=== PATIENT | male | born 1950 | race Caucasian/White ===

== ENCOUNTER → 2016-08-29 | Outpatient (CLI) | payer BC ==
[~2016-08-29] MED LIST: ACCL20 PO; ASCO500T3 PO; ASPI81TA28 PO; CHOL1TAB46 PO; CLB/200 PO; DILT120C43 PO; FLNIN NAE; GLC/500 PO; GLIM2TAB2 PO; LEVAAER2 INH; MAGN500T4 PO; NIAC500T7 PO; SYMIN160 INH; VITA400C3 PO
[2016-08-29 12:33] LABS: ESTIMATED AVERAGE GLUCOSE 174 mg/dl; HA1C FLAG Normal (Normal)
== END | disposition home or self-care (01) ==
LOC: C.LABBC 07:48
PROVIDERS: ATTEND Internal Medicine Endocrinology, Diabetes & Metabolism
DX: I25.10 Atherosclerotic heart disease of native coronary artery without angina pectoris (principal); E78.5 Hyperlipidemia, unspecified; I10 Essential (primary) hypertension; E55.9 Vitamin D deficiency, unspecified; E10.42 Type 1 diabetes mellitus with diabetic polyneuropathy; R20.8 Other disturbances of skin sensation

== ENCOUNTER → 2016-12-21 | Outpatient (CLI) | payer BC ==
[2016-12-21 10:40] LABS: ALT/SGPT 60 U/L (12-78); AST/SGOT 58 U/L (15-37); BLOOD UREA NITROGEN 23 mg/dl (7-18); BUN/CREATININE RATIO 23.7 (10-20); CALCIUM 8.5 mg/dl (8.5-10.1); CARBON DIOXIDE 32 mmol/L (21-32); CHLORIDE 108 mmol/L (98-107); CREATININE 0.95 mg/dl (0.60-1.40); GLUCOSE 158 mg/dl (70-99); POTASSIUM 4.4 mmol/L (3.5-5.1); SODIUM 144 mmol/L (136-145)
[2016-12-21 10:42] LABS: CHOLESTEROL 136 mg/dl (0-200); CHOLESTEROL/HDL RATIO 1.9; HDL CHOLESTEROL 70 mg/dl; LDL CHOLESTEROL CALCULATED 54 mg/dl; TRIGLYCERIDES 58 mg/dl (0-150); VERY LOW DENSITY LIPOPROT CALC 12 mg/dl
== END | disposition home or self-care (01) ==
LOC: C.LABBC 08:22
PROVIDERS: ATTEND Internal Medicine Cardiovascular Disease
DX: I25.10 Atherosclerotic heart disease of native coronary artery without angina pectoris (principal); I10 Essential (primary) hypertension; Z11.59 Encounter for screening for other viral diseases

== ENCOUNTER → 2016-12-29 | Outpatient (CLI) | payer BC | END | disposition home or self-care (01) | LOC: C.RDSM 09:35 | PROVIDERS: ATTEND Orthopaedic Surgery Sports Medicine | DX: M25.562 Pain in left knee (principal) ==

== ENCOUNTER → 2017-03-14 | Outpatient (CLI) | payer BC ==
--- NOTE | 2017-03-15 05:37 | PAP/PSG TECHNICIAN REPORT ---
[facility] Cheese [facility] Polysomnogram Report Study name: None Report date: 03/15/2017 Study date: 03/14/2017 Referring Physician: BRANDON HEALY DO, DO Name: BROAmeyaANJEL Interpreting Physician: Brandon Healy D.O. Date of : 1950 Cheese Cook: Dora Magana [facility]. Sex: Male Age: 66 Study Type: PSG Weight: 160 lbs Height: 66 years, Height 5' 7" BMI: 25.06 Medications: ADVIL 200 MG, ASPIRIN 81 MG, CARTIA 120 MG, CELECOXIB 200 MG, CIALIS 5 MG, FLUTICASONE PROPIONATE 50 MCG/ACT, HUMALOG 100 UNIT/ML, MAGNESIUM 500 MG, METFORMIN 500 MG, MONTELUKAST 10 MG, NIACIN 1000 MG, PANTOPRAZOLE 40 MG, PROAIR HFA, SYMBICORT 160-4.5 MCG/ACT, VIT C 500 MG Patient History 66 yr-old male here for a baseline/split study. He has a history of atrial fibrillation, witnessed apneas, and snoring. His [place] scale is 5. The test was started on room air. The TV was turned off. ETCO2 testing was not utilized during this study. Room 3 Parameters Monitored NPSG: E1-M2, E2-M1, Fp1-M2, Fp2-M1, F3-M2, F4-M2, F4-M1, C3-M2, C4-M2, C4-M1, O1-M2, O2-M2, O2-M1, T3-M2, T4-M1, P3-M2, P4-M1, CHIN1, CHIN2, HR, EKG, Legs, PFLOW, SNOR, FLOW, CFLOW, Tidal Volume, THOR, ABDO, SpO2, PLTH, CPRESS, ETCO2 Wave, ETCO2, pH Sleep Architecture Sleep Stages Time at Lights Off 10:24:54 PM STAGES Time (min.) TST (%) Time at Lights On 1:47:54 AM Wake 152.0 -- Total Recording Time (TRT) 203.00 min. N1 44.0 86 Total Sleep Period (TSP) 177.0 min. N2 7.0 14 Total Sleep Time (TST) 51.0min. N3 0.0 0 Awake Time 152.0 min. REM 0.0 0 Wake after Sleep Onset 143.5 min. Sleep Efficiency (SE) 25 % Sleep Onset Latency (JYOTI) 8.5 min. Number of Stage 1 Shifts None Awakenings 14 Stage Changes 46 Number of REM periods N/A REM 0.0 0 REM Latency NONE min. NREM 51.0 100 Body Position Analysis Supine Right Left Side Prone Vertical Total Sleep Time (min.) 0.0 8.3 42.7 51.00 0.0 0.0 Total Sleep Time (%) 0% 16% 84% 100 0% N/A% Total Sleep Time REM (min.) 0.0 0.0 0.0 None 0.0 0.0 Total Sleep Time NREM (min.) 0.0 8.3 42.7 None 0.0 0.0 Intermittent Wake (min.) 0.0 70.7 81.3 None 0.0 0.0 Total Sleep Period (%) 0% None None None None None Arousals Myoclonus (PLM) * Events Count Index Events Count Index Spontaneous 19 22 Events Awake (PLMW) 174 68.7 Respiratory 2 2.4 Events Asleep w/ Arousal (PLMA) 45 52.9 PLM 44 53 Events Asleep w/o Arousal (PLMS) 33 38.8 Snoring 0 0 Total Asleep 78 91.8 Total 65 76 Total 252 74 Respiratory Analysis * CA OA MA CH H RERA Total Count 0 1 0 0 0 1 1 Index 0.0 1.2 0.0 0 0.0 1 2.4 Mean Duration 0.0 15.9 0.0 0.00 0.0 17.6 16.8 Longest Duration 0.0 15.9 0.0 0.00 0.0 17.6 17.6 Respiratory Event Summary Total Supine ~Supine Right Left Prone REM NREM Apneas Count 1 N/A 1 1 0 N/A N/A 1 Index 1.2 N/A 1 7.2 0.0 N/A N/A 1 Hypopneas (4% Desat) Count 0 N/A 0 0 0 N/A N/A 0 Index 0.0 N/A 0 0.0 0.0 N/A N/A 0.0 Apneas & All Hypopneas Count 1 N/A 1 1 0 N/A N/A 1 Index 1.2 N/A 1 7 0 N/A N/A 1.2 Respiratory Events (Car Checker+All Hyp+RERA) Count 1 N/A 2 1 1 N/A N/A 1 Index 2.4 N/A 2 7.2 1.4 N/A N/A 2.4 Respiratory Related Arousal Count 2 N/A 2 1 1 N/A N/A 2 Index 2.4 N/A 2 7 1 N/A N/A 2 Snoring Analysis Supine Right Left Prone REM NREM Total Snore duration 0.6 min Snores count N/A 3 13 N/A N/A 16 16 Snore mean duration 2.2 Sec Snores index N/A 22 18 N/A N/A 18.8 18.8 TST with snoring (%) 1.2% Desaturation Event Summary: Minimum %SpO2 Event Count Mean/Min/Max Duration(sec.) Desaturation Index % Time In Bed > 90 5 30.4 / 5.8 / 53.5 2.0 97.2 86 - 90 0 N/A 0.0 2.6 81 - 85 1 17.0 / 17.0 / 17.0 194.6 0.2 76 - 80 0 N/A 0.0 0.0 71 - 75 0 N/A 0.0 0.0 66 - 70 0 N/A 0.0 0.0 61 - 65 0 N/A 0.0 0.0 56 - 60 0 N/A 0.0 0.0 51 - 55 0 N/A 0.0 0.0 < 50 0 N/A 0.0 0.0 Total REM NREM Awake <50% 0.0 min. 0.0 min. 0.0 min. 0.0 min. 51 - 60% 0.0 min. 0.0 min. 0.0 min. 0.0 min. 61 - 70% 0.0 min. 0.0 min. 0.0 min. 0.0 min. 71 - 80% 0.0 min. 0.0 min. 0.0 min. 0.0 min. 81 - 90% 4.2 min. 0.0 min. 1.4 min. 2.8 min. 91 - 100% 147.3 min. 0.0 min. 48.5 min. 98.8 min. Average 93 0 93 93 Minimum SpO2 82 N/A 90 82 Desaturation Event Index 1.8 0.0 1.2 2.0 # Desat. Events below 89% 1 N/A N/A 1 Time(%) with Saturation below 89% 0.2 0.0 0.0 0.2 Time(min.) with Saturation below 89% 0.3 0.0 0.0 0.3 Time (mins) REM (mins) NREM (mins) % of TST SpO2 Below 90% N/A N/A NN/A 0.0 SpO2 Below 88% 0 0 0 0 Heart Rate Analysis Min (bpm) Max (bpm) Average (bpm) Awake 48 265 58 NREM 46 60 50 REM N/A N/A N/A Overall 46 60 50 Supplemental O2 Values Minimum O2 level: None Value Start Time End Time Cheese Cook Comments Mr. Gamboa slept in the right and left positions. No cardiac arrhythmias were noted. Although sleep time was short, he did have many leg movements that caused arousals. No bruxism noted. Snoring was noted and scored as a 2 on a scale of 1 through 5. (0=no snoring, 5=snoring loud enough to be heard through a closed door or down the [address] way). He did not meet specific Split-Night criteria during the diagnostic portion of this study. He started to express a feeling of anxiety with all of the wires. He stated that feeling that way was making it hard to relax and get to sleep. Around 2 am, he requested to go home. He awoke to use the restroom four times during the night. Mr. Gamboa stated that he felt anxious and could not sleep. The final report will be interpreted and signed by a sleep physician. The completed physician report will then be placed in the patient medical record. Therapy (cm H2O) 0 TIB (min.) 203.0 TST (min.) 51.0 Sleep Onset (min.) 8.5 REM Onset From Sleep (min.) NONE Sleep Efficiency % 25 Wakefulness (%) 75 Wakefulness (min.) 152.0 NREM 1 (%) 86 NREM 1 (min.) 44.0 NREM 2 (%) 14 NREM 2 (min.) 7.0 NREM 3 (%) 0 NREM 3 (min.) 0.0 REM (%) 0 REM (min.) 0.0 # Arousals 65 Arousal Index 76 # Snore 16 Snore Index 18.8 AHI 1.2 AHI Supine N/A AHI Non-Supine 1 NREM AHI 1.2 REM AHI N/A RDI 2.4 # Obstructive Apnea 1 # Central Apnea 0 # Mixed Apnea 0 # Hypopneas 0 RERAs 1 Total Respiratory Events 2 Time Below SpO2 89% (min.) 0.0 Mean NREM SpO2 (%) 93 Mean REM SpO2 (%) N/A Mean Sleep SpO2 (%) 93 Min NREM SpO2 (%) 90 Min REM SpO2 (%) N/A Position Supine (min.) 0.0 Position Non-supine (min.) 51.0 LM Index Sleep 91.8 LM Index NREM 91.8 LM Index REM N/A Mean Heart Rate (bpm) 50 Min Heart Rate (bpm) 46 Cheese Cook Comments and User Events: Comment/Event Page Number Time of Day PT CALS 237 10:21:25 PM Look Right 237 10:21:41 PM Look Left 237 10:21:44 PM Look Up 238 10:21:55 PM Look Down 238 10:21:57 PM Eyes Closed 238 10:22:08 PM Bite down on Jaw 239 10:22:28 PM Flex foot 239 10:22:33 PM Hold Breath 239 10:22:42 PM Snore sound 240 10:23:00 PM HE STATED THAT HE IS GETTING CLAUSTROPHOBIC ROLLING IN ALL OF THE WIRES. HE REQUESTED TO SIT UP IN A CHAIR FOR AWHILE AFTER USING THE RESTROOM. HE MAY TRY TO GET BACK IN BED FOR ANOTHER TRY 493 12:29:24 AM HE IS NOW TRYING TO RELAX ONCE MORE. HE STATED THAT HE WILL TRY TO GET BACK TO BED ONE MORE TIME 534 12:49:58 AM HE STATED THAT HE WAS NOT SLEEPING ENOUGH AND WANTED TO END THE STUDY TO GO HOME AND GET SLEEP 648 1:47:23 AM
--- NOTE | 2017-03-18 15:13 | POLYSOMNOGRAPH REPORT ---
CLINICAL DATA: The patient is a 66-year-old male who has a BMI of 25.06. He has a history of snoring, observed apnea, and disturbed nocturnal sleep. He has had sleepiness driving. His [place] score, however, is only 5 out of a possible 24. The patient has a history of atrial fibrillation and asthma. SLEEP ARCHITECTURE: The total sleep period was 177.0 minutes. The total sleep time was 51.0 minutes. The sleep efficiency is severely reduced to 25%. The sleep latency was 8.5 minutes. Wake after sleep onset was elevated at 143.5 minutes. Sleep consisted of stage N1 at 86%, stage N2 at 14%, stage N3 at 0%, and stage REM 0%. AROUSAL DATA: The patient had a total of 65 arousals including 19 spontaneous arousals, 2 respiratory arousals, 44 PLM arousals, and 0 snoring arousals. The arousal index is 76. PLM DATA: The patient had a total of 78 periodic limb movements of sleep for an index of 91.8. There were 45 arousals, associated with limb movements for a PLM arousal index of 52.9. EKG: The cardiac rates ranged from 46-60 beats per minute. The average heart rate was 50 beats per minute. The rhythm was normal sinus. There were rare extrasystoles. RESPIRATORY DATA: The patient had a total of only 1 respiratory event and obstructive apnea. The apnea was 15.9 seconds in length. There was 1 RERA. The apnea-hypopnea index was normal at 1.2 events per hour. OXIMETRY DATA: The average saturation for the night was 93%. The minimum saturation was 82%. This appears to be technical in nature. He had only 0.3 minutes with saturations less than 89%. WING COMMANDER COMMENTS: The patient slept in the right and left positions. No cardiac arrhythmias were noted. Although sleep time was short, he had many leg movements that caused arousals. No bruxism noted. Snoring was noted and scored as a 2 on a scale of 1 through 5. The patient expressed a feeling of anxiety. He indicated he could not relax and get to sleep and stay asleep. He ultimately requested to go home around 02:00 a.m. IMPRESSIONS: 1. Periodic limb movement disorder. 2. Insomnia. COMMENTS: The patient had a poor night sleep. His total sleep time was less than 1 hour. Thus, it is difficult to make a judgment. In the less than 1 hour of sleep time, he had very little sleep apnea. He did have poorly consolidated sleep with mainly stage N1 sleep and no stage N3 or REM. The patient did have frequent periodic limb movements. It is unclear if these may be contributing to his insomnia or not. The patient has a history of atrial fibrillation, but his cardiac rhythm was sinus throughout. As noted, it is difficult to make definitive opinions with a total of only 51 minutes of sleep time. RECOMMENDATIONS: 1. The patient does have a marked elevation of periodic limb movements. Clinical correlation is required to determine if indeed the patient may have true restless leg syndrome and may benefit from pharmacologic therapy. 2. Consideration could be given to doing a repeat study, perhaps even as a home sleep study where the patient might sleep better. 3. The patient should be advised of the appropriate principles of sleep hygiene with particular attention to having a regular sleep-wake schedule and to allow approximately 7-1/2 hours of sleep time per night. MTDD
== END | disposition home or self-care (01) ==
LOC: C.NEUR 20:00
PROVIDERS: ATTEND Internal Medicine Pulmonary Disease
DX: G47.33 Obstructive sleep apnea (adult) (pediatric) (principal)

== ENCOUNTER → 2017-04-10 | Outpatient (CLI) | payer BC ==
--- NOTE | 2017-04-12 17:44 | Sleep Study ---
Sleep Study Report Date of Service: 04/10/2017 Sleep Study Report Clinical data: The patient is a 66-year-old male with a history of snoring, observed apneas, and disturbed nocturnal sleep. He has a history of sleepiness while driving. He completed the [place] Sleepiness Scale and had a score of only 5/24. Comorbidities include atrial fibrillation and asthma. His BMI is 25.21. The patient had an in-lab overnight polysomnography on 03/14/2017. For the entire night he had a total of only 51 minutes of sleep. Thus no determination regarding the presence or absence of sleep apnea could be made. In light of this a home sleep study is being done. On the evening of April 10 a home sleep apnea test was performed using a [employer] type 3 monitor. Recording results: Total recording time was 10 hours. Patient estimated sleep time was 7.9 hours. Respiratory data: Moderate sleep apnea was noted. He had a total of 136 respiratory events including 72 obstructive apneas, 8 mixed apneas, 41 central apneas, and 15 hypopneas. The BETSY was 17.2 events per hour. The maximum respiratory event was 40 seconds. This reflects moderate sleep apnea. Oximetry data: The mean saturation for the night was 93 percent. The minimum saturation was 88 percent. Heart rate data: The lowest heart rate was 49 beats per minute. The mean heart rate was 61 beats per minute. Snoring data snoring was present throughout the night. Impressions: 1. Moderate obstructive sleep apnea Recommendations: 1. It is advised that the patient be treated with nasal CPAP. He previously had an in-lab sleep study and did not sleep hardly at all. Thus it would be suggested that he be started on auto CPAP. 2. It is suggested that the patient avoid sleeping in the supine position. During this study it was noted that the apnea-hypopnea index in the supine position was 38. 3. The patient should be advised the appropriate principles of sleep hygiene including having a regular sleep-wake schedule and allowing 7.5-8 hours of sleep per night. Copies To 1: Brandon Rowe DO; Mat Anne D.O.
== END | disposition home or self-care (01) ==
LOC: C.NEUR 09:15
PROVIDERS: ATTEND Internal Medicine Pulmonary Disease
DX: G47.33 Obstructive sleep apnea (adult) (pediatric) (principal)

== ENCOUNTER → 2017-06-06 | Outpatient (CLI) | payer BC ==
[~2017-06-06] MED LIST changes: +OPTIRAY 320 IV PRN
--- NOTE | 2017-06-06 15:01 | DIAGNOSTIC IMAGING REPORT ---
CT SCAN OF THE CHEST WITH IV CONTRAST CLINICAL HISTORY: Hemoptysis. COMPARISON STUDY: Chest CT scans dated 12/20/2014 and 03/09/2012. TECHNIQUE: Following the IV administration of 94 cc of Optiray 320, CT scan of the thorax was performed from the thoracic inlet to the upper abdomen. Images are reviewed in the axial, sagittal, and coronal planes. IV contrast was administered without complication. A dose lowering technique was utilized adhering to the principles of ALARA. CT DOSE: 318.25 mGycm FINDINGS: Thyroid: Imaged portions of the thyroid gland are normal in size and attenuation. Thoracic aorta: There is mild atherosclerotic calcification of the thoracic aorta, which is normal in caliber and demonstrates standard 3-vessel arch anatomy. No dissection is seen. Pulmonary vasculature: The pulmonary trunk is dilated, measuring 3.6 cm in diameter. This suggests pulmonary artery hypertension. There are no filling defects identified in the central pulmonary vessels to indicate pulmonary embolus. Note that this examination was not protocoled for evaluation of the pulmonary arteries. Heart: The patient is status post midline sternotomy. The heart is enlarged and without pericardial effusion. The coronary arteries are densely calcified. Lungs and pleural spaces: Linear atelectasis versus scarring is present at the lung bases. No airspace consolidation is seen typical for pneumonia and there is no pleural effusion. Minimal secretions are present within the trachea and right mainstem bronchus. Mediastinum: There is no mediastinal lymphadenopathy. Carmen: Clear. Axillae: There is no axillary lymphadenopathy. Upper abdomen: Nonobstructing calculi are seen in the upper poles of both kidneys. There is a small hiatal hernia fatty infiltration is noted adjacent to falciform ligament. Skeletal structures: The skeletal structures are osteopenic. No lytic or blastic bony lesions are seen. There are healed right-sided rib fractures. Postoperative change is noted in the left proximal humerus. IMPRESSION: 1. No acute cardiopulmonary abnormality is identified. 2. Cardiomegaly. 3. Scarring versus atelectasis is present at both lung bases. There is no airspace consolidation typical for pneumonia or pleural effusion. 4. Bilateral nephrolithiasis. 5. Additional findings as above. Electronically signed by: Octavio Mcghee M.D. 06/06/2017 3:00 PM Dictated Date/Time: 06/06/2017 2:55 PM
== END | disposition home or self-care (01) ==
LOC: C.CTS 14:13
PROVIDERS: ATTEND Internal Medicine Pulmonary Disease
DX: R04.2 Hemoptysis (principal); I51.7 Cardiomegaly; N20.0 Calculus of kidney

== ENCOUNTER → 2017-09-20 | Outpatient (CLI) | payer BC ==
[~2017-09-20] MED LIST changes: -OPTIRAY 320 IV PRN
== END | disposition home or self-care (01) ==
LOC: C.RDSM 12:55
PROVIDERS: ATTEND Orthopaedic Surgery Sports Medicine
DX: M17.12 Unilateral primary osteoarthritis, left knee (principal)

== ENCOUNTER 2019-02-11 05:19 | Inpatient (IN) ==
--- NOTE | 2019-01-27 16:37 | PAT Medication Instructions ---
Medication Instructions Date of Service January 28, 2019 Home Medications Medication Instructions Recorded metformin 500 mg tablet 1,000 mg PO BID #360 tab 12/25/18 metformin 500 mg tablet 1,000 mg PO BID ascorbic acid (vitamin C) 500 mg PO QAM aspirin [Aspirin Low Dose] 81 mg PO QAM budesonide-formoterol 2 puff INHALATION BID celecoxib 200 mg PO QAM cholecalciferol (vitamin D3) [Vitamin D3] 5,000 unit PO QAM diltiazem HCl 120 mg PO QAM fluticasone propionate 2 spray INTRANASAL DAILY NEEDED insulin lispro [Humalog U-100 Insulin] 1 sliding scale dose SUBCUT USEASDIRECTD levalbuterol HCl 0.63 mg INHALATION HS levalbuterol tartrate 2 inh INHALATION Q6H NEEDED magnesium oxide 500 mg PO QAM niacinamide [Niacin (niacinamide)] 3,000 mg PO QAM pantoprazole 40 mg PO QAM vitamin E 400 unit PO QAM ASK your surgeon for instructions aspirin [Aspirin Low Dose] 81 mg PO QAM celecoxib 200 mg PO QAM STOP taking 2 weeks before surgery vitamin E 400 unit PO QAM STOP taking 24 hours before surgery niacinamide [Niacin (niacinamide)] 3,000 mg PO QAM DO NOT take the morning of surgery insulin lispro [Humalog U-100 Insulin] 1 sliding scale dose SUBCUT USEASDIRECTD metformin 500 mg tablet 1,000 mg PO BID ascorbic acid (vitamin C) 500 mg PO QAM fluticasone propionate 2 spray INTRANASAL DAILY NEEDED cholecalciferol (vitamin D3) [Vitamin D3] 5,000 unit PO QAM magnesium oxide 500 mg PO QAM niacinamide [Niacin (niacinamide)] 3,000 mg PO QAM Take morning of surgery With a small sip of water, OTHERWISE NOTHING TO EAT OR DRINK AFTER MIDNIGHT: budesonide-formoterol 2 puff INHALATION BID diltiazem HCl 120 mg PO QAM levalbuterol tartrate 2 inh INHALATION Q6H NEEDED (if needed) pantoprazole 40 mg PO QAM Take evening before surgery insulin lispro [Humalog U-100 Insulin] 1 sliding scale dose SUBCUT USEASDIRECTD metformin 500 mg tablet 1,000 mg PO BID budesonide-formoterol 2 puff INHALATION BID levalbuterol HCl 0.63 mg INHALATION HS levalbuterol tartrate 2 inh INHALATION Q6H NEEDED (if needed) Other Notes If you have any questions please call us at [phone] or [phone] or [phone] or [phone]
--- NOTE | 2019-01-28 10:58 | Anesthesiology Consultation ---
Date of Service January 28, 2019 Assessment & Plan (1) Encounter for pre-operative examination: - Latter-day - Does not want any blood products - No previous anesthesia records re: intubation. - Patient has received all appropriate clearances from PCP, Cardio, Pulmonology, and Endocrinology. Chart Review Chart Review: Acceptable Risk for Surgery and Patient seen in Pre Admission Testing Consults Requested Dr. Reed, Dr. Holcomb, Dr. Rowe, Dr. Anne Patient was seen by Dr. Reed's office on 01/22/19 for pre-operative cardiac eval uation. Per note from that visit, "He is currently stable and asymptomatic from a cardiovascular standpoint with no anginal symptoms occurring at >4 METS of activity. He has no evidence of CHF or significant valvular heart disease. ECG today shows sinus bradycardia with no acute ST-T wave abnormality. His blood pressure is adequately controlled. Given this information, the patient is at an acceptable risk to proceed with upcoming surgery from a cardiovascular standpoint without any additional testing/intervention." Patient was seen by PCPs office, Dr. Anne, on 02/03 for preoperative evaluation. Per note from that visit, " At this time I believe the patient is WITHIN ACCEPTABLE MEDICAL RISK FOR HIS PROCEDURE SCHEDULED ON 02/11/19." Patient was seen by Pulmonology on 02/04/19 for preoperative evaluation. Per note from that visit, patient is "Cleared for right total knee replaced from a pulmonary perspective with anticipated spinal anesthesia. Intraoperatively and postoperatively patient needs close observation in light of his history of untreated moderate sleep apnea." Patient is to continue his levalbuterol and Symbicort as directed. A form was also sent to endocrinology, which was returned indicating that patient is cleared for surgery re: diabetes. Teaching & Discussion Pre-Anesthesia Teaching/Discussion Notes: Instructed NPO after midnight before s urgery, except medications with 15 cc of water. Medication instructions provided according to the PAT guidelines. History Surgery Operation Date: 02/11/19 07:00 Proposed Procedures p Right Total Knee Arthroplasty - Justin Solis MD Height/Weight Height: 5 ft 7 in Weight: 69.7 kg Allergies Allergy/AdvReac Type Severity Reaction Status Date / Time Ppsrzck-Pou-Ayf Reductase Allergy Mild NAUSEA Verified 02/03/19 15:23 Inhibitor tamsulosin AdvReac Nausea Verified 02/03/19 15:23 Medications Home Medications Medication Instructions Recorded Confirmed Last Taken metformin 500 mg tablet 1,000 mg PO BID #360 tab 12/25/18 02/03/19 Unknown ascorbic acid (vitamin C) 500 mg PO QAM 01/20/19 02/03/19 Unknown aspirin [Aspirin Low Dose] 81 mg PO QAM 01/20/19 02/03/19 Unknown budesonide-formoterol 2 puff INHALATION BID 01/20/19 02/03/19 Unknown celecoxib 200 mg PO QAM 01/20/19 02/03/19 Unknown cholecalciferol (vitamin D3) 5,000 unit PO QAM 01/20/19 02/03/19 Unknown [Vitamin D3] diltiazem HCl 120 mg PO QAM 01/20/19 02/03/19 Unknown fluticasone propionate 2 spray INTRANASAL DAILY PRN 01/20/19 02/03/19 Unknown insulin lispro [Humalog U-100 1 sliding scale dose SUBCUT 01/20/19 02/03/19 Unknown Insulin] USEASDIRECTD levalbuterol HCl 0.63 mg INHALATION HS 01/20/19 02/03/19 Unknown levalbuterol tartrate 2 inh INHALATION Q6H PRN 01/20/19 02/03/19 Unknown magnesium oxide 500 mg PO QAM 01/20/19 02/03/19 Unknown niacinamide [Niacin (niacinamide)] 3,000 mg PO QAM 01/20/19 02/03/19 Unknown pantoprazole 40 mg PO QAM 01/20/19 02/03/19 Unknown vitamin E 400 unit PO QAM 01/20/19 02/03/19 Unknown dutasteride 0.5 mg capsule PO .TAKE ONE CAPSULE BY #90 cap 01/29/19 01/29/19 Unknown montelukast 10 mg tablet PO .TAKE 1 TABLET AT BED #90 tab 01/29/19 01/29/19 Unknown Past Medical History Medical History Asthma Atrial fibrillation Diabetes mellitus, type 2 GERD (gastroesophageal reflux disease) History of kidney stones Hyperlipidemia taking niacin Osteoarthritis Sleep apnea does not use mask d/t comfort issue Exercise / Class Metabolic Activity II 4-5 Yardwork/Stairs/Walk up hill (~7K steps per day per fitbit. Able to climb FOS. Denies CP or SOB. ) Past Family History Family History Father Family history of diabetes mellitus Coronary heart disease Myocardial infarction Brother Family history of diabetes mellitus Mother Family history of diabetes mellitus Essential hypertension Stroke Past Surgical History Surgical History H/O colonoscopy H/O lithotripsy 03/28/13: LMA #4 History of cardiac cath 1997 - deb History of open reduction and internal fixation (ORIF) procedure left humerous Hx of heart bypass surgery 1997 - triple deb Hx of hernia repair Left inguinal: 06/04/12: LMA #5 attempted but didn't seal, LMA #4 successful Hx of sinus surgery Past Anesthesia History No Hx of Anesthesia Complications and No Family Hx of Anesthesia Complications History of PONV No Hx of PONV and No Hx of Motion Sickness Social History Smoking Status: Never smoker Do You Dip or Chew Tobacco: No Hx Alcohol Use: Yes alcohol intake frequency: holidays/special occasions only Hx Substance Use: No Review of Systems Patient denies chest pain, shortness of breath, dyspnea on exertion, cough, wheezing, palpitations. +Joint Pain (Knees, Hips) +Acid Reflux (Controlled with current medications) +Wheezing (Improves with medications) +Heart Palpitations Physical Exam Vital Signs BP: 161/77 P: 57 R: 16 T: 97.8 SPO2: 98% ENMT Thyromental Distance: > or= 3.5 Finger Breadths (3) Mallampati Class: II Neck normal visual inspection and trachea midline; neck extension not limited Respiratory normal respiratory effort Auscultation: lungs clear to auscultation bilaterally Cardiovascular Rate/Rhythm: regular rate and regular rhythm Heart Sounds: no murmur Vessels: no carotid bruit Neurologic moves all extremities Psychiatric Orientation: alert and oriented x 3 Testing Laboratory Results 01/28/19 11:51 01/28/19 11:51 PT 10.0 Seconds (9.0-12.0) 01/28/19 11:51 INR 1.0 (0.9-1.1) 01/28/19 11:51 APTT 24.9 Seconds (21.0-31.0) 01/28/19 11:51 Hemoglobin A1c 7.2 % (4.5-5.6) H 01/28/19 11:51 Blood Type A Positive 01/28/19 11:51 Antibody Screen NEGATIVE 01/28/19 11:51 Electrocardiogram Date: 01/22/19 Findings: + SB @ (57) Sinus bradycardia with sinus arrhythmia Inferior myocardial infarction, probably old Chest X-Ray Date: 01/28/19 Findings: + NAD FINDINGS: Mild stable cardiomegaly. Prior median sternotomy. Atelectasis right base. Lungs otherwise appear clear. IMPRESSION: Focal atelectasis right base. Otherwise negative study post median sternotomy. Echocardiogram Date: 12/20/14 EF: 55-60% Normal left ventricular size, wall motion, and systolic function. No left ventricular hypertrophy. No significant valvular abnormalities visualized. No prior study available for comparison.
--- NOTE | 2019-01-28 12:05 | XRay Report ---
XR chest Pre-admission PA/Lat CLINICAL HISTORY: PAT preoperative evaluation COMPARISON STUDY: 09/17/2018 FINDINGS: Mild stable cardiomegaly. Prior median sternotomy. Atelectasis right base. Lungs otherwise appear clear. IMPRESSION: Focal atelectasis right base. Otherwise negative study post median sternotomy. The above report was generated using voice recognition software. It may contain grammatical, syntax or spelling errors. Electronically signed by: Eliecer Astorga M.D. 01/28/2019 12:04 PM
[2019-01-28 12:33] LABS: Basophils # (auto) 0.06 K/uL (0-0.2); Basophils % (auto) 1.2 %; Eosinophils # (auto) 0.41 K/uL (0-0.5); Eosinophils % (auto) 8.3 %; Hematocrit (blood only) 37.7 % (42-52); Lymphocytes # (auto) 1.07 K/uL (1.2-3.4); Lymphocytes % (auto) 21.7 %; Mean Corpuscular Hgb Conc 31.8 g/dL (32-36); Mean Corpuscular Volume 84.5 fL (80-100); Mean Platelet Volume 10.5 fL (7.4-10.4); Monocytes # (auto) 0.47 K/uL (0.11-0.59); Monocytes % (auto) 9.5 %; Neutrophils # (auto) 2.92 K/uL (1.4-6.5); Neutrophils % (auto) 59.3 %; Platelet Count 191 K/uL (130-400); RDW Coefficient of Variation 16.4 % (11.5-14.5); RDW Standard Deviation 50.5 fL (36.4-46.3); Red Blood Count 4.46 M/uL (4.7-6.1); White Blood Count 4.93 K/uL (4.8-10.8)
[2019-01-28 12:42] LABS: Partial Thromboplastin Ratio 0.9; Partial Thromboplastin Time 24.9 Seconds (21.0-31.0)
[2019-01-28 12:43] LABS: Albumin Level 3.4 gm/dl (3.4-5.0); BUN Creatinine Ratio 19.6 (10-20); Bilirubin Direct 0.1 mg/dl (0-0.2); Calcium 8.9 mg/dl (8.5-10.1); Creatinine Clr Calc Pharmacy 90.5 ml/min; Est GFR (African American) 110.3; Est GFR (Non-African American) 95.2; Potassium 3.9 mmol/L (3.5-5.1)
[2019-01-28 12:45] LABS: Bilirubin,Total 0.5 mg/dl (0.2-1); Estimated Average Glucose 160 mg/dl; Hemoglobin A1C 7.2 % (4.5-5.6); Total Protein 6.7 gm/dl (6.4-8.2)
[2019-02-11] MEDS ORDERED: TRANEXAMIC ACID 1,000 MG **IV Pre-op IV SCH (06:00)
[2019-02-11] MEDS ORDERED: CEFAZOLIN 2000MG 2,000 MG/15 ML SYR IV SCH (06:00)
[2019-02-11] MEDS ORDERED: CeleBREX 200 MG CAP PO SCH (06:00)
[2019-02-11] MEDS ORDERED: LR 60ML/HR IV SCH (06:00)
[2019-02-11] MEDS ORDERED: ROPIVACAINE 0.5% HCL/PF 150 MG, BUPIVACAINE 0.5% MPF 30 ML, EPINEPHrine 0.15 MG, Ketoro... INFIL SCH (06:00)
[2019-02-11] MEDS ORDERED: LR 500ML BOLUS, THEN 15ML/HR IV SCH (06:00)
[2019-02-11] MEDS ORDERED: BUPIVACAINE 0.5 % 5 MG/1 ML PF 10ML VIAL ONE (06:09)
[2019-02-11] MEDS ORDERED: BUPIVACAINE/EPINEPHRINE 0.25% 1:200,000 30 ML VIAL ONE (06:09)
[2019-02-11] MEDS ORDERED: ROPIVACAINE 0.5% 5 MG/ML 30 ML VIAL ONE (06:10)
[2019-02-11] MEDS ORDERED: TRANEXAMIC ACID 1,000 MG **IV Intra-op IV SCH (06:30)
[2019-02-11] MEDS ORDERED: ORTHO JOINT ANESTHETIC ONE (06:34)
[2019-02-11] MEDS ORDERED: fentaNYL citrate 100 MCG/2 ML VIAL ONE (06:35)
[2019-02-11] MEDS ORDERED: MIDAZOLAM HCL 1 MG/ML 2ML VIAL ONE ×2 (06:35)
--- NOTE | 2019-02-11 06:37 | History & Physical Bridge Note ---
Date of Service February 11, 2019 History & Physical Bridge Note I have examined the patient, reviewed the History & Physical and in the interval since the performance of the History & Physical I have noted the following changes of clinical significance: no changes noted
[2019-02-11] MEDS ORDERED: HEPARIN (PORCINE) 1000 UNIT/ML 10 ML (CATH LAB USE ONLY) ONE (07:57)
[2019-02-11] MEDS ORDERED: HYDROmorphone INJ 2 MG/ML SYR/VIAL IV PRN (08:27)
[2019-02-11] MEDS ORDERED: fentaNYL citrate 100 MCG/2 ML VIAL IV PRN (08:27)
[2019-02-11] MEDS ORDERED: ePHEDrine sulfate 50 MG/ML AMP IV PRN (08:27)
[2019-02-11] MEDS ORDERED: ATROPINE SULFATE 0.1 MG/ML 10ML SYR IV PRN (08:27)
[2019-02-11] MEDS ORDERED: PROPOFOL IV EMULSION 10 MG/ML 20 ML VIAL IV ONE ×2 (08:32→09:42)
[2019-02-11] MEDS ORDERED: LIDOCAINE HCL 2% 2 ML VIAL/AMP(20MG/ML) INFIL ONE (08:32)
--- NOTE | 2019-02-11 09:52 | Post Operative Brief Note ---
Immediate Post Op Note v1 Date of Surgery February 11, 2019 Pre & Post Diagnosis Operation Date: 02/11/19 07:00 Pre-Op Diagnosis: Right Knee Osteoarthritis Post-Op Diagnosis: Right Knee Osteoarthritis Procedure Operation Date: 02/11/19 07:00 Actual Procedures p Right Total Knee Arthroplasty(Right) - Justin Solis MD Surgeon Justin Solis MD Bullet Assembly Press Operator Sunny Simental PA-C & Yariel Lujan MD Estimated Blood Loss 100 Findings Consistent with Post-Op Diagnosis Fluids 1500 cc Specimens Right knee contents Anesthesia Type MAC Spinal Regional Complications none
--- NOTE | 2019-02-11 09:53 | Operative Report ---
Post Operative Report Pre & Post Diagnosis Operation Date: 02/11/19 07:00 Pre-Op Diagnosis: Right Knee Osteoarthritis Post-Op Diagnosis: Right Knee Osteoarthritis Procedure Operation Date: 02/11/19 07:00 Actual Procedures p Right Total Knee Arthroplasty(Right) - Justin Solis MD Surgeon Justin Solis MD Assembler Tractor Sunny Simental PA-C & Yariel Lujan MD Estimated Blood Loss 100 Findings See Below Examined Under Anesthesia: ROM -- There was 0 degrees to 135 degrees of flexion Ligamentous examination -- revealed stable Zhen, posterior drawer, varus and valgus stress at 0 and 30 degrees. Outerbridge Type IV changes of medial compartment, with bone on bone and significant sclerosis. The lateral compartment had type IV changes of the lateral tibial plateau. The patella had Outerbridge type IIIII changes. Fluids 1500 cc Specimens Right knee contents Drains n/a Anesthesia Type MAC Spinal Regional Complications none Indications This is a 68-year-old male who has clinical and radiographic findings consistent with osteoarthritis of the a right knee. I recommended that a right total knee replacement be performed. The patient understands the risks of surgery, which include but not limited to: bleeding, infection, re-operation, damage to nerves and arteries, continued knee pain, knee stiffness, DVT, and . The patient understands all of these instructions and explanations, all of his questions have been satisfactorily addressed and the patient has elected to proceed. Informed consent was signed. Description of Procedure IMPLANTS: 1. Femur: Triathlon #4 Right PS. 2. Tibia: Triathlon #5 [place]. 3. Insert: Triathlon #5 x 9 mm PS X3 poly. 4. Patella: Triathlon A29 x 9 mm X3 poly. 5. Palacos G cement. Procedure: The patient was taken to the Operating Room and placed in the supine position after spinal and adductor canal nerve block was administered. My initials and a multidisciplinary time-out were used to identify the correct patient and the right leg as the correct operative limb. A tourniquet was placed high in the thigh. Prior to the incision, 2 grams of intravenous Ancef were given. The right leg was then prepped and draped in a standard sterile fashion. An Esmarch was used to exsanguinate the leg and the tourniquet was inflated to 250 mmHg. The planned mid-line 20 cm incision was created exposing the extensor mechanism. The medial parapatellar arthrotomy was made and the patella was everted. The patella was addressed first. It was prepared by reaming from 24 mm down to 14 mm. An A29 button was found to fit best. The peg holes were made in the standard fashion. The femur was addressed next and the guide cathy was placed intramedullary. The initial cutting block was placed with 5 degrees of valgus and removing 8 mm for the anterior cut. The cut was made and the 4-in-1 cutting block for a size 4 femur was placed. These cuts and the cuts to place the box were made in the standard fashion. Our attention was then drawn to the tibia cut with the external cutting guide, taking 4 mm from the medial low side. There was sufficient extension and flexion gap to fit a 11 mm spacer. A #5 Tibial baseplate fit well. A trial with a 11 mm spacer showed excellent stability in both flexion and extension, with good ligament balance. Range of motion of 0-135 degrees. The tibial baseplate was pinned and the final preparation for the keel and stem was made. All the trial components were tested again, with good stability and thumbs free tracking of the patella. All components were removed. The tourniquet was deflated. Hemostasis was obtained. 90 ml of total knee cocktail were injected into the soft tissues and periosteum. A bone plug was placed in the femur and covered with bone wax. After a 15 minute break, the limb was exsanguinated again and the tourniquet was re-inflated. All surfaces were copiously irrigated prior to placement of the components. The femoral component and Tibial baseplate were placed and cemented and a 11 mm trial placed. The patellar button was cemented next. The 11 mm poly-trial seemed to lack full extension. This was exchanged for a 9 mm trial poly was placed and the range of motion and stability were excellent. Once the cement had cured, the 9 mm X3 poly was placed. The extensor mechanism was closed with 1-0 and 0 Vicryl with the knee bent approximately 60 degrees in a standard fashion. The peritenon and deep fascia was closed with 2-0 Vicryl. The subcutaneous layer was closed with 3-0 Vicryl. The skin was closed with Zipline. The limb was cleaned and dried. 4x4 dressing was placed over top followed by ABDs, sterile Webril, and a foot to thigh Jose bandage. The patient was then transferred to the Recovery Room in stable condition. A Cell Saver had been used during the case, but there was insufficient amount of fluid to reconstitute. The sponge and needle counts were correct. POST-OP INSTRUCTIONS: The patient will be WBAT. The patient will be admitted to the hospital. The patient will use the knee immobilizer when ambulating and standing until good quad control is achieved. Labs will be obtained during her stay. DVT prophylaxis will included aspirin 325 twice a day for 3 weeks then switching to aspirin 81 mg twice a day for 3 more weeks, TEDs, and mechanical foot pumps. A fter that he may switch back to his regular 81 mg dose. The dressing will be changed prior to their discharge or postop day #2 and covered with a Silverlon dressing, whichever comes first. I attest to the content of the Intraoperative Record and any orders documented therein. Any exceptions are noted below.
--- NOTE | 2019-02-11 10:17 | Operative Report ---
Post Operative Report Pre & Post Diagnosis Operation Date: 02/11/19 07:00 Pre-Op Diagnosis: Right Knee Osteoarthritis Post-Op Diagnosis: Right Knee Osteoarthritis Procedure Operation Date: 02/11/19 07:00 Actual Procedures p Right Total Knee Arthroplasty(Right) - Justin Solis MD Surgeon Justin Solis MD Orthotic Finish Grinding Technician Sunny Simental PA-C & Yariel Lujan MD Estimated Blood Loss 100 Findings Consistent with Post-Op Diagnosis Specimens see operative report Drains none Complications none Disposition Accompanied Patient To Recovery: Yes Disposition: Recovery Room Indications This 68-year-old white male presented to the office with complaints of intractable right knee pain. He had tried conservative care measures without improvement. Patient elected to proceed with surgical intervention after being educated about potential risks and outcomes. Preoperative imaging was obtained. Description of Procedure Patient was administered a regional block and spinal anesthetic and then taken to the operating room where he was given sedation. He was prepped and draped in the usual sterile fashion. Please see Dr. Solis's operative report for specifics of the procedure. I was present for the entire case from initial patient positioning through final wound closure. Assistance was provided in tissue retraction, hemostasis, trial implant placement, final implant placement, and final wound closure. Patient was taken to the recovery room in satisfactory condition. I attest to the content of the Intraoperative Record and any orders documented therein. Any exceptions are noted below.
--- NOTE | 2019-02-11 10:49 | XRay Report ---
RIGHT KNEE 2 VIEWS History: Right total knee arthroplasty. Degenerative arthritis. Postop. FINDINGS: The patient is status post a right total knee arthroplasty. The hardware is intact. No frac ture or dislocation. IMPRESSION: Right total knee arthroplasty. No evidence for hardware complication. Electronically signed by: Danny Arellano M.D. 02/11/2019 10:48 AM
--- NOTE | 2019-02-11 11:01 | Anesthesiology Progress Note ---
Date of Service February 11, 2019 Anesthesia Post Procedure Vital Signs Vital Signs: Temp Pulse Pulse Resp BP Pulse Ox 02/11/19 10:45 36.3 C L 52 L 16 130/65 97 02/11/19 10:35 36.3 C L 51 L 16 138/62 96 02/11/19 10:25 36.3 C L 53 L 18 137/66 97 02/11/19 10:15 36.3 C L 53 L 18 127/63 99 02/11/19 10:05 36.3 C L 55 L 19 124/59 L 100 02/11/19 09:58 36.3 C L 55 L 16 124/56 L 100 02/11/19 05:57 36.3 C L 69 20 185/97 H 97 Transfer of Care Handoff Completed per policy Notes Mental Status: alert / awake / arousable and participated in evaluation Patient Amnestic to Procedure: Yes Nausea / Vomiting: adequately controlled Pain: adequately controlled Airway Patency, RR, SpO2: stable & adequate BP & HR: stable & adequate Hydration State: stable & adequate Neuraxial Anesthesia: was administered and sensory block is resolving Anesthetic Complications: no major complications apparent
[2019-02-11] MEDS ORDERED: LEVALBUTEROL TARTRATE 15 GM HFA.AER.AD INH PRN (11:09)
[2019-02-11] MEDS ORDERED: NALOXONE HCL 0.4 MG/1 ML VIAL/CARP IV PRN (11:09)
[2019-02-11] MEDS ORDERED: ALUMINUM/MAGNESIUM SUSP 30 ML UDC PO PRN (11:09)
[2019-02-11] MEDS ORDERED: FLUTICASONE PROPIONATE NA SPR 16 GM BTL PRN (11:09)
[2019-02-11] MEDS ORDERED: MAGNESIUM HYDROXIDE SUSP 30 ML UDC PO PRN (11:09)
[2019-02-11] MEDS ORDERED: METOCLOPRAMIDE HCL INJ 5 MG/ML 2 ML VIAL IV PRN (11:09)
[2019-02-11] MEDS ORDERED: BISACODYL 10 MG SUPP PR PRN (11:09)
[2019-02-11] MEDS ORDERED: HYDROmorphone INJ 0.5 MG/0.5 ML SYR IV PRN (11:09)
[2019-02-11] MEDS ORDERED: SODIUM CHLORIDE 0.9% 1000ML 1,000 ML IV SCH (11:09)
[2019-02-11] MEDS ORDERED: DiphenhydrAMINE HCL 50 MG/ML VIAL IV PRN (11:09)
[2019-02-11] MEDS ORDERED: ONDANSETRON INJ 2 MG/ML 2 ML VIAL IV PRN (11:09)
[2019-02-11] MEDS ORDERED: INSULIN ASPART 100 UNITS/ML 3 ML PEN SC SCH (11:30)
[2019-02-11] MEDS ORDERED: DEXTROSE 50% 50 ML SYRINGE IV PRN (12:45)
[2019-02-11] MEDS ORDERED: INSULIN HUMAN LISPRO (humaLOG) 100 UNITS/ML VIAL SC PRN (12:45)
[2019-02-11] MEDS ORDERED: GLUCOSE 40% GEL 15 GM TUBE PO PRN (12:45)
[2019-02-11] MEDS ORDERED: GLUCAGON FOR INJ 1 MG VIAL SQ PRN (12:45)
[2019-02-11] MEDS ORDERED: CARBOHYDRATES FOR HYPOGLYCEMIA PO PRN (12:45)
[2019-02-11] MEDS ORDERED: GLUCOSE 10 TABS/TUBE PO PRN (12:45)
[2019-02-11] MEDS: KETOROLAC TROMETHAMINE 15 MG/ML VIAL IV SCH ×3 (13:24→23:35)
[2019-02-11] MEDS: ACETAMINOPHEN 500 MG TAB PO SCH ×2 (13:28→21:35)
--- NOTE | 2019-02-11 14:10 | Operative Report ---
Post Operative Report Pre & Post Diagnosis Operation Date: 02/11/19 07:00 Pre-Op Diagnosis: Right Knee Osteoarthritis Post-Op Diagnosis: Right Knee Osteoarthritis Procedure Operation Date: 02/11/19 07:00 Actual Procedures p Right Total Knee Arthroplasty(Right) - Justin Solis MD Surgeon Dr Justin Solis MD Bottom Loader Sunny Simental PA-C & Yariel Lujan MD Estimated Blood Loss 100 Findings Consistent with Post-Op Diagnosis Specimens Please see the op notes Drains none Complications none Disposition Accompanied Patient To Recovery: Yes Disposition: Recovery Room Indications Right knee intractable pain for long duration with radiological evidence of gross osteoarthritis Description of Procedure Patient was administered regional block and spinal anaesthesia and then was taken to the operating room with sedation. His right lower extremity was prepped and draped in standard fashion. Please see Dr Solis's op report for specifications of the procedure. I was present during the entire case and assisted Dr Solis in tissue retraction, closure and dressing. I also accompanied the patient to the recovery room in satisfactory condition. I attest to the content of the Intraoperative Record and any orders documented therein. Any exceptions are noted below.
--- NOTE | 2019-02-11 14:44 | Consultation ---
Date of Consultation February 11, 2019 Assessment & Plan (1) Total knee replacement status: pain control, DVT prophylaxis, dishcarge planning per ortho encouraged deep breathing discussed bowel regimen, staying well hydrated and active (2) Atrial fibrillation with RVR: h/o such in normal sinus rhythm, on Diltiazem qAM no anticoagulation given status of Tenriism (3) CAD (coronary artery disease): h/o CABG in no chest pain or angina since that time very active, easily performs 4 METS of activity on a daily basis cleared by cardiology for surgery pre op no chest pain post op, vitals stable will be on Aspirin 325mg BID for DVT prophylaxis (4) Diabetes: type I, detention insulin use, macrovascular complications with CAD continue to use insulin pump, patient comfortable managing on his own (5) Asthma: mild, intermittent well controlled on Symbicort and Levalbuterol inhaler in the morning and nebuli zer in the evening no wheezing on exam, breathing well History of Present Illness Requesting Physician: Dr. Solis Reason for Consultation: Medical management Attending Physician: Justin Solis MD History of Present Illness 68 yo male with history of severe osteoarthritis in the knees, CAD with h/o CABG x 3, paroxysmal atrial fibrillation, asthma, sleep apnea, DM type I with insulin pump presents to the hospital s/p TKA of the right knee. Procedure went well, no immediate complications. Pain is well controlled. No chest pain or difficulty breathing after surgery. He is discussing glucose management with the primary special educator, will use his pump. He had some food post op, tolerated well. Reviewed previous records, follows with [facility] Cardiology and Pulmonology. He was seen by both specialists prior to surgery and cleared for anesthesiology. He is quite active, walks [phone] to [phone] steps a day, does yard work, walks up steps without chest pain or dyspnea. No cardiac issues since CABG in the . EKG was sinus bradycardia. No further cardiac testing recommended from cardiology. His asthma is controlled with levalbuterol inhaler and Symbicort. He has unt reated sleep apnea. Of note he is a Tenriism and refuses blood products. Allergies Allergy/AdvReac Type Severity Reaction Status Date / Time Dfwgpif-Rre-Dbc Reductase Allergy Mild NAUSEA Verified 02/11/19 05:48 Inhibitor tamsulosin AdvReac Nausea Verified 02/11/19 05:48 Home Medications Home Medications Medication Instructions Recorded Confirmed Type metformin 500 mg tablet 1,000 mg PO BID #360 tab 12/25/18 02/11/19 Rx ascorbic acid (vitamin C) 500 mg PO QAM 01/20/19 02/11/19 History aspirin [Aspirin Low Dose] 81 mg PO QAM 01/20/19 02/11/19 History budesonide-formoterol 2 puff INHALATION BID 01/20/19 02/11/19 History celecoxib 200 mg PO QAM 01/20/19 02/11/19 History cholecalciferol (vitamin D3) 5,000 unit PO QAM 01/20/19 02/11/19 History [Vitamin D3] diltiazem HCl 120 mg PO QAM 01/20/19 02/11/19 History fluticasone propionate 2 spray INTRANASAL DAILY PRN 01/20/19 02/11/19 History insulin lispro [Humalog U-100 1 sliding scale dose SUBCUT 01/20/19 02/11/19 History Insulin] USEASDIRECTD levalbuterol HCl 0.63 mg INHALATION HS 01/20/19 02/11/19 History levalbuterol tartrate 2 inh INHALATION Q6H PRN 01/20/19 02/11/19 History magnesium oxide 500 mg PO QAM 01/20/19 02/03/19 History niacinamide [Niacin (niacinamide)] 3,000 mg PO QAM 01/20/19 02/11/19 History pantoprazole 40 mg PO QAM 01/20/19 02/11/19 History vitamin E 400 unit PO QAM 01/20/19 02/11/19 History dutasteride 0.5 mg capsule PO .TAKE ONE CAPSULE BY #90 cap 01/29/19 01/29/19 History montelukast 10 mg tablet mg PO .TAKE 1 TABLET AT BED #90 tab 01/29/19 01/29/19 History acetaminophen [Tylenol Extra 1,000 mg PO Q8 #90 tab 02/12/19 Rx Strength] ascorbic acid (vitamin C) [Vitamin 500 mg PO BIDM #60 tab 02/12/19 Rx C] aspirin 325 mg PO BID #42 tab 02/12/19 Rx docusate sodium 100 mg PO BID #60 cap 02/12/19 Rx ferrous gluconate 324 mg PO BIDM #60 tab 02/12/19 Rx oxycodone 5 - 10 mg PO Q4H PRN #30 tab 02/12/19 Rx Patient History Family History Father Family history of diabetes mellitus Coronary heart disease Myocardial infarction Brother Family history of diabetes mellitus Mother Family history of diabetes mellitus Essential hypertension Stroke Social History Preferred Language: Icelandic Communication Ability: Effective Beliefs That Will Affect Care: Temple Temple Beliefs: JEHOVAH WITNESS - NO BLOOD marital status: Current Living Situation: Spouse current occupational status: retired Feels Safe at Home: Yes Safety Concerns: Feels Safe At This Time Smoking Status: Never smoker Do You Dip or Chew Tobacco: No ; Second Hand Exposure: No ; Hx Alcohol Use: Yes Alcohol type: beer, wine and hard liquor Alcohol Intake Frequency: Rarely Hx Substance Use: No Childhood Exposure to Second-Hand Smoke: Yes Dental Care, Regularly: Yes Physical Activity Frequency: 5-6 Times per Week Physical Activity Frequency Comment: walking Seatbelt Use: always Review of Systems Review of Systems: All systems reviewed & are unremarkable except as noted in HPI & below Constitutional: no fever, no chills and no sweats Respiratory: no cough, no dyspnea, no dyspnea on exertion, no snoring and no wheezing Cardiovascular: no chest pain, no dyspnea, no orthopnea, no syncope and no edema Gastrointestinal: no abdominal pain, no vomiting, no constipation and no diarrhea/loose stools Musculoskeletal: + joint pain (right knee) Integumentary: no rash, no lesions and no wounds Neurologic: no unsteadiness, no tingling, no numbness, no tremor(s) and no syncope Psychiatric: no depression and no anxiety Physical Exam Constitutional: WD/WN, vitals as above Eyes: PERRL, conjunctivae normal, anicteric sclerae ENMT: external ear and nose normal, oropharynx normal Neck: trachea midline, no thyromegaly Respiratory: normal respiratory effort, lungs clear to auscultation Cardiovascular: RRR, no murmur, no edema Gastrointestinal (Abdomen): normal bowel sounds, soft, nontender, no hepatosplenomegaly Musculoskeletal: no cyanosis or clubbing, extremities motor strength 5/5 Knee: + knee abnormal to inspection (right knee swollen, tender), + surgical incision and + surgical drain present Skin: no rashes, warm and dry Neurologic: patellar DTR's 2+ bilat, sensation intact and PERRL, EOMI, accommodation nl, no face palsy, no dysarthria Psychiatric: A+Ox3, euthymic affect Lymphatic: no cervical or axillary lymphadenopathy Results & Data Vital Signs (Past 12 Hours) Vital Signs Temp Pulse Pulse Resp BP Pulse Ox 02/11/19 14:08 36.5 C 64 15 177/72 H 95 02/11/19 13:20 195/82 H 02/11/19 13:00 69 17 200/95 H 98 02/11/19 12:01 52 L 16 153/80 H 98 02/11/19 11:35 50 L 18 142/75 H 95 02/11/19 11:00 36.9 C 52 L 12 135/72 98 02/11/19 10:45 36.3 C L 52 L 16 130/65 97 02/11/19 10:35 36.3 C L 51 L 16 138/62 96 02/11/19 10:25 36.3 C L 53 L 18 137/66 97 02/11/19 10:15 36.3 C L 53 L 18 127/63 99 02/11/19 10:05 36.3 C L 55 L 19 124/59 L 100 02/11/19 09:58 36.3 C L 55 L 16 124/56 L 100 02/11/19 05:57 36.3 C L 69 20 185/97 H 97 Laboratory Results Laboratory Results - last 24 hr 02/11/19 02/11/19 02/11/19 12:09 17:26 20:34 WBC RBC Hgb Hct MCV MCH MCHC RDW Std Deviation RDW Coeff of Jane Plt Count MPV Sodium Potassium Chloride Carbon Dioxide Anion Gap BUN Creatinine Est Cr Clr Drug Dosing Est GFR ( Amer) Est GFR (Non-Af Amer) BUN/Creatinine Ratio Glucose POC Glucose 116 H 147 H 201 H Calcium Hepatitis C Antibody 02/12/19 02/12/19 02/12/19 06:31 06:31 06:31 WBC 11.26 H RBC 3.77 L Hgb 10.1 L Hct 30.8 L MCV 81.7 MCH 26.8 MCHC 32.8 RDW Std Deviation 49.3 H RDW Coeff of Jane 16.4 H Plt Count 186 MPV 9.2 Sodium 141 Potassium 3.9 Chloride 108 H Carbon Dioxide 28 Anion Gap 5.0 BUN 13 Creatinine 0.82 Est Cr Clr Drug Dosing 79.5 Est GFR ( Amer) 104.6 Est GFR (Non-Af Amer) 90.2 BUN/Creatinine Ratio 15.8 Glucose 120 H POC Glucose Calcium 8.6 Hepatitis C Antibody Neg 02/12/19 08:13 WBC RBC Hgb Hct MCV MCH MCHC RDW Std Deviation RDW Coeff of Jane Plt Count MPV Sodium Potassium Chloride Carbon Dioxide Anion Gap BUN Creatinine Est Cr Clr Drug Dosing Est GFR ( Amer) Est GFR (Non-Af Amer) BUN/Creatinine Ratio Glucose POC Glucose 131 H Calcium Hepatitis C Antibody Medications Administered Current Inpatient Medications Acetaminophen (Tylenol) 1,000 mg PO Q8 [facility] Stop: 03/13/19 13:59 Last Admin: 02/12/19 06:09 Dose: 1,000 mg Documented by: Al Hydrox/Mg Hydrox/Simethicone (Maalox) 15 ml PO Q4H PRN PRN Reason: Heartburn Stop: 03/13/19 11:08 Ascorbic Acid (Vitamin C) 500 mg PO BIDM [facility] Stop: 03/13/19 16:59 Last Admin: 02/12/19 08:48 Dose: 500 mg Documented by: Aspirin (Ecotrin) 325 mg PO BID [facility] Stop: 03/13/19 20:59 Last Admin: 02/12/19 08:47 Dose: 325 mg Documented by: Bisacodyl (Dulcolax) 10 mg AK DAILY PRN PRN Reason: Constipation Stop: 03/13/19 11:08 Budesonide/Formoterol Fumarate (Symbicort 160mcg/4.5mcg) 2 puffs INH BID [facility] Stop: 03/13/19 20:59 Last Admin: 02/12/19 08:48 Dose: 2 puffs Documented by: Dextrose (Dextrose 50%) 25 - 50 ml IV UD PRN; Protocol PRN Reason: Hypoglycemia Protocol Stop: 03/13/19 12:44 Diltiazem HCl (Cardizem Cd) 120 mg PO QAM [facility] Stop: 03/14/19 08:59 Last Admin: 02/12/19 08:47 Dose: 120 mg Documented by: Diphenhydramine HCl (Benadryl) 25 mg IV Q8H PRN PRN Reason: Itching Stop: 03/13/19 11:08 Docusate Sodium (Colace) 100 mg PO BID [facility] Stop: 03/13/19 20:59 Last Admin: 02/12/19 08:48 Dose: 100 mg Documented by: Ferrous Gluconate (Ferrous Gluconate) 324 mg PO BIDM [facility] Stop: 03/13/19 16:59 Last Admin: 02/12/19 08:48 Dose: 324 mg Documented by: Fluticasone Propionate (Flonase) 2 sprays NA DAILY PRN PRN Reason: Nasal Congestion Stop: 03/13/19 11:08 Glucagon (Glucagen) 1 mg SQ UD PRN; Protocol PRN Reason: Hypoglycemia Protocol Stop: 03/13/19 12:44 Glucose (Glucose 40%) 15 - 30 gm PO UD PRN; Protocol PRN Reason: Hypoglycemia Protocol Stop: 03/13/19 12:44 Glucose (Dex4 Glucose) 4 - 8 tabs PO UD PRN; Protocol PRN Reason: Hypoglycemia Protocol Stop: 03/13/19 12:44 Hydromorphone HCl (Dilaudid) 0.5 mg IV Q2H PRN PRN Reason: Pain Stop: 02/25/19 11:08 Insulin Human Lispro (Humalog Insulin Pump) 1 ea N/A ACHS [facility]; Protocol Stop: 03/13/19 16:29 Last Admin: 02/12/19 08:51 Dose: 1 ea Documented by: Insulin Human Lispro (Humalog) 0 units SC PRN PRN PRN Reason: REFILL Stop: 03/13/19 12:44 Levalbuterol HCl (Xopenex 0.63 Mg/3 Ml Neb) 0.63 mg INH HS [facility] Stop: 03/13/19 20:59 Last Admin: 02/11/19 21:05 Dose: 0.63 mg Documented by: Levalbuterol HCl (Xopenex Hfa) 2 puffs INH Q6H PRN PRN Reason: Wheezing Stop: 03/13/19 11:08 Magnesium Hydroxide (Milk Of Magnesia) 30 ml PO Q6H PRN PRN Reason: Constipation Stop: 03/13/19 11:08 Magnesium Oxide (Mag-Ox) 400 mg PO DAILY [facility] Stop: 03/14/19 08:59 Last Admin: 02/12/19 08:47 Dose: 400 mg Documented by: Metoclopramide HCl (Reglan) 10 mg IV Q6H PRN PRN Reason: Nausea And Vomiting Stop: 03/13/19 11:08 Miscellaneous (Carbohydrates For Hypoglycemia) 15 - 30 gm PO UD PRN PRN Reason: Hypoglycemia Treatment Stop: 03/13/19 12:44 Multivitamins (Multivitamin Tab) 1 tab PO [facility] Stop: 03/14/19 08:59 Last Admin: 02/12/19 08:48 Dose: 1 tab Documented by: Naloxone HCl (Narcan) 0.1 mg IV Q5M PRN PRN Reason: Oversedation/Resp Depression Stop: 03/13/19 11:08 Ondansetron HCl (Zofran) 4 mg IV Q6H PRN PRN Reason: Nausea And Vomiting Stop: 03/13/19 11:08 Oxycodone HCl (Roxicodone Immediate Rel) 5 - 10 mg PO Q4H PRN PRN Reason: Pain Stop: 02/25/19 11:08 Last Admin: 02/12/19 03:57 Dose: 5 mg Documented by: Pantoprazole Sodium (Protonix) 40 mg PO QAM [facility] Stop: 03/14/19 08:59 Last Admin: 02/12/19 08:47 Dose: 40 mg Documented by: Sennosides (Senokot) 17.2 mg PO [facility] Stop: 03/13/19 20:59 Last Admin: 02/11/19 21:34 Dose: 17.2 mg Documented by: PG Care Time/CCT Total # of Minutes Spent Total Time Spent with Patient: Total time spent is greater than 50% in coordination of care (as documented) at patient's floor/unit and/or counseling patient:
[2019-02-11] MEDS: CEFAZOLIN 2000MG 2,000 MG/15 ML SYR IV SCH ×2 (16:26→23:34)
--- NOTE | 2019-02-11 16:42 | Orthopedic Progress Note ---
Date of Service February 11, 2019 Assessment & Plan (1) Total knee replacement status: POD #0, s/p right TKA. Diabetic Diet. WBAT with knee immobilizer when ambulating and standing until good quad control is achieved. PT/OT. Continue pain control. Ice and elevate. Will check Labs in AM. DVT prophylaxis: ASA 325mg BID 3 weeks then switching to aspirin 81 mg BID for 3 more weeks, before returning to regular daily dose. TEDs for minimum 2 weeks or until the swelling decreases to normal, and mechanical foot pumps while in the hospital. The dressing will be changed prior to their discharge or postop day #2 and covered with a Silverlon dressing, whichever comes first. Appreciate medicine's input. D/C planning. Present on Admission?: No Subjective Doing fine Physical Exam Physical Exam: RLE: Dressing is clean, dry, intact. Calf is soft and nontender. Sensation to light touch intact. Able to preform straight leg raise. Results & Data Vital Signs (Past 12 Hours) Vital Signs Temp Pulse Pulse Resp BP Pulse Ox 02/11/19 15:18 36.6 C 54 L 16 151/71 H 95 02/11/19 14:08 36.5 C 64 15 177/72 H 95 02/11/19 13:20 195/82 H 02/11/19 13:00 69 17 200/95 H 98 02/11/19 12:01 52 L 16 153/80 H 98 02/11/19 11:35 50 L 18 142/75 H 95 02/11/19 11:00 36.9 C 52 L 12 135/72 98 02/11/19 10:45 36.3 C L 52 L 16 130/65 97 02/11/19 10:35 36.3 C L 51 L 16 138/62 96 02/11/19 10:25 36.3 C L 53 L 18 137/66 97 02/11/19 10:15 36.3 C L 53 L 18 127/63 99 02/11/19 10:05 36.3 C L 55 L 19 124/59 L 100 02/11/19 09:58 36.3 C L 55 L 16 124/56 L 100 02/11/19 05:57 36.3 C L 69 20 185/97 H 97 Diagnostic Findings AP and lateral radiographs of the right knee, show cemented components in good position. Evidence of recent Right TKA.
[2019-02-11] MEDS: FERROUS GLUCONATE 324 MG TAB PO SCH (17:31)
[2019-02-11] MEDS: ASCORBIC ACID 500 MG TAB PO SCH (17:31)
[2019-02-11] MEDS: OXYCODONE HCL IR 5 MG TAB (IMMEDIATE RELEASE) PO PRN ×2 (18:28→22:38)
[2019-02-11] MEDS ORDERED: SENNA 8.6 MG TAB PO SCH (21:00)
[2019-02-11] MEDS ORDERED: LEVALBUTEROL HCL 0.63 MG/3 ML NEB INH SCH (21:00)
[2019-02-11] MEDS: DOCUSATE SODIUM 100 MG CAP PO SCH (21:34)
[2019-02-11] MEDS: ASPIRIN 325 MG ECTAB PO SCH (21:35)
[2019-02-11] MEDS: BUDESONIDE/FORMOTEROL FUMARATE 160/4.5 60 PUFFS/INHALER INH SCH (21:36)
[2019-02-12] MEDS: OXYCODONE HCL IR 5 MG TAB (IMMEDIATE RELEASE) PO PRN ×4 (03:57→17:59)
[2019-02-12] MEDS: KETOROLAC TROMETHAMINE 15 MG/ML VIAL IV SCH (06:08)
[2019-02-12] MEDS: ACETAMINOPHEN 500 MG TAB PO SCH ×2 (06:09→13:21)
[2019-02-12 06:40] LABS: Hematocrit (blood only) 30.8 % (42-52); Hemoglobin 10.1 g/dL (14.0-18.0); Mean Corpuscular Hgb Conc 32.8 g/dL (32-36); Mean Corpuscular Volume 81.7 fL (80-100); Mean Platelet Volume 9.2 fL (7.4-10.4); Platelet Count 186 K/uL (130-400); RDW Coefficient of Variation 16.4 % (11.5-14.5); RDW Standard Deviation 49.3 fL (36.4-46.3); Red Blood Count 3.77 M/uL (4.7-6.1); White Blood Count 11.26 K/uL (4.8-10.8)
[2019-02-12 07:13] LABS: BUN Creatinine Ratio 15.8 (10-20); Calcium 8.6 mg/dl (8.5-10.1); Creatinine Clr Calc Pharmacy 79.5 ml/min; Est GFR (African American) 104.6; Est GFR (Non-African American) 90.2; Potassium 3.9 mmol/L (3.5-5.1)
[2019-02-12] MEDS: ASPIRIN 325 MG ECTAB PO SCH (08:47)
[2019-02-12] MEDS: ASCORBIC ACID 500 MG TAB PO SCH ×2 (08:48→17:21)
[2019-02-12] MEDS: FERROUS GLUCONATE 324 MG TAB PO SCH ×2 (08:48→17:22)
[2019-02-12] MEDS: BUDESONIDE/FORMOTEROL FUMARATE 160/4.5 60 PUFFS/INHALER INH SCH (08:48)
[2019-02-12] MEDS: DOCUSATE SODIUM 100 MG CAP PO SCH (08:48)
[2019-02-12] MEDS ORDERED: MAGNESIUM OXIDE 400 MG TAB PO SCH (09:00)
[2019-02-12] MEDS ORDERED: MULTIVITAMIN TAB PO SCH (09:00)
[2019-02-12] MEDS ORDERED: dilTIAZem HCL 120 MG CAPCR PO SCH (09:00)
[2019-02-12] MEDS ORDERED: PANTOprazole 40 MG TAB PO SCH (09:00)
--- NOTE | 2019-02-12 09:35 | Orthopedic Progress Note ---
Date of Service February 12, 2019 Assessment & Plan (1) Total knee replacement status: POD #1, s/p right TKA. Diabetic Diet. WBAT with walker, november D/C knee immobilizer PT/OT. Continue pain control. Ice and elevate. H/H stable. DVT prophylaxis: ASA 325mg BID 3 weeks then switching to aspirin 81 mg BID for 3 more weeks, before returning to regular daily dose. TEDs for minimum 2 weeks or until the swelling decreases to normal, and mechanical foot pumps while in the hospital. Will apply Silverlon this morning for potential discharge later today. Appreciate medicine's input. Plan for discharge later today if pain controlled and does well in PT to his home and to outpatient PT. Discharge instructions/medications reviewed. Findings discussed with Dr. Solis, will see after PT this morning. D/C planning. I, Dr. Solis, saw and examined the patient and discussed the management with my PA. I reviewed my PAs note and agree with the documented findings and the plan of care I developed. Silverlon dressing had been applied. Patient is okay for discharge later today. Subjective POD 1 - right TKA, doing well, pain controlled with oxycodone. Has been getting up frequently. Uses walker. Has not had PT today yet, but expecting them this morning. No chest pain, shortness of breath, tolerating regular diet. Patient states that he'd like to go to out patient PT at time of discharge in our office. Considering going home today, but would like to see how he does in PT. He states that if Dr. Solis is okay with it he will leave today. Physical Exam Physical Exam: Right knee incision, clean, dry, intact, dressings removed, silverlon applied. No calf tenderness, mild distal edema, sensation normal, distal pulses 1+, Strength 5/5. Able to idenpendently SLR. Results & Data Vital Signs (Past 12 Hours) Vital Signs Temp Pulse Pulse Resp BP Pulse Ox 02/12/19 08:00 36.8 C 61 16 123/69 94 02/12/19 03:19 36.8 C 67 14 177/79 H 97 02/12/19 00:38 169/79 H 02/11/19 23:43 67 175/83 H 02/11/19 23:04 36.5 C 72 14 189/78 H 95 Laboratory Results Lab Results 01/28/19 01/28/19 01/28/19 Range/Units 11:51 11:51 11:51 WBC 4.93 (4.8-10.8) K/uL RBC 4.46 L (4.7-6.1) M/uL Hgb 12.0 L (14.0-18.0) g/dL Hct 37.7 L (42-52) % MCV 84.5 (80-100) fL MCH 26.9 (25-34) pg MCHC 31.8 L (32-36) g/dL RDW Std Deviation 50.5 H (36.4-46.3) fL RDW Coeff of Jane 16.4 H (11.5-14.5) % Plt Count 191 (130-400) K/uL MPV 10.5 H (7.4-10.4) fL Immature Gran % (Auto) 0.0 % Neut % (Auto) 59.3 % Lymph % (Auto) 21.7 % [place] % (Auto) 9.5 % Eos % (Auto) 8.3 % Baso % (Auto) 1.2 % Immature Gran # (Auto) 0.00 (0.00-0.02) K/uL Neut # (Auto) 2.92 (1.4-6.5) K/uL Lymph # (Auto) 1.07 L (1.2-3.4) K/uL [place]ois # (Auto) 0.47 (0.11-0.59) K/uL Eos # (Auto) 0.41 (0-0.5) K/uL Baso # (Auto) 0.06 (0-0.2) K/uL PT 10.0 (9.0-12.0) Seconds INR 1.0 (0.9-1.1) APTT 24.9 (21.0-31.0) Seconds PTT Ratio 0.9 Sodium 142 (136-145) mmol/L Potassium 3.9 (3.5-5.1) mmol/L Chloride 107 (98-107) mmol/L Carbon Dioxide 28 (21-32) mmol/L Anion Gap 7.0 (3-11) BUN 14 (7-18) mg/dl Creatinine 0.72 (0.6-1.4) mg/dl Est Cr Clr Drug Dosing 90.5 ml/min Est GFR ( Amer) 110.3 Est GFR (Non-Af Amer) 95.2 BUN/Creatinine Ratio 19.6 (10-20) Glucose 132 H (70-99) mg/dl POC Glucose (70-99) Estimat Average Glucose mg/dl Hemoglobin A1c (4.5-5.6) % Calcium 8.9 (8.5-10.1) mg/dl Total Bilirubin 0.5 (0.2-1) mg/dl Direct Bilirubin 0.1 (0-0.2) mg/dl AST 26 (15-37) U/L ALT 31 (12-78) U/L Alkaline Phosphatase 89 (45-117) U/L Total Protein 6.7 (6.4-8.2) gm/dl Albumin 3.4 (3.4-5.0) gm/dl Hepatitis C Antibody (Neg) Blood Type Antibody Screen 01/28/19 01/28/19 02/11/19 Range/Units 11:51 11:51 05:50 WBC (4.8-10.8) K/uL RBC (4.7-6.1) M/uL Hgb (14.0-18.0) g/dL Hct (42-52) % MCV (80-100) fL MCH (25-34) pg MCHC (32-36) g/dL RDW Std Deviation (36.4-46.3) fL RDW Coeff of Jane (11.5-14.5) % Plt Count (130-400) K/uL MPV (7.4-10.4) fL Immature Gran % (Auto) % Neut % (Auto) % Lymph % (Auto) % [place] % (Auto) % Eos % (Auto) % Baso % (Auto) % Immature Gran # (Auto) (0.00-0.02) K/uL Neut # (Auto) (1.4-6.5) K/uL Lymph # (Auto) (1.2-3.4) K/uL [place] # (Auto) (0.11-0.59) K/uL Eos # (Auto) (0-0.5) K/uL Baso # (Auto) (0-0.2) K/uL PT (9.0-12.0) Seconds INR (0.9-1.1) APTT (21.0-31.0) Seconds PTT Ratio Sodium (136-145) mmol/L Potassium (3.5-5.1) mmol/L Chloride (98-107) mmol/L Carbon Dioxide (21-32) mmol/L Anion Gap (3-11) BUN (7-18) mg/dl Creatinine (0.6-1.4) mg/dl Est Cr Clr Drug Dosing ml/min Est GFR ( Amer) Est GFR (Non-Af Amer) BUN/Creatinine Ratio (10-20) Glucose (70-99) mg/dl POC Glucose 111 H (70-99) Estimat Average Glucose 160 mg/dl Hemoglobin A1c 7.2 H (4.5-5.6) % Calcium (8.5-10.1) mg/dl Total Bilirubin (0.2-1) mg/dl Direct Bilirubin (0-0.2) mg/dl AST (15-37) U/L ALT (12-78) U/L Alkaline Phosphatase (45-117) U/L Total Protein (6.4-8.2) gm/dl Albumin (3.4-5.0) gm/dl Hepatitis C Antibody (Neg) Blood Type A Positive Antibody Screen NEGATIVE 02/11/19 02/11/19 02/11/19 Range/Units 10:01 12:09 17:26 WBC (4.8-10.8) K/uL RBC (4.7-6.1) M/uL Hgb (14.0-18.0) g/dL Hct (42-52) % MCV (80-100) fL MCH (25-34) pg MCHC (32-36) g/dL RDW Std Deviation (36.4-46.3) fL RDW Coeff of Jane (11.5-14.5) % Plt Count (130-400) K/uL MPV (7.4-10.4) fL Immature Gran % (Auto) % Neut % (Auto) % Lymph % (Auto) % [place] % (Auto) % Eos % (Auto) % Baso % (Auto) % Immature Gran # (Auto) (0.00-0.02) K/uL Neut # (Auto) (1.4-6.5) K/uL Lymph # (Auto) (1.2-3.4) K/uL [place] # (Auto) (0.11-0.59) K/uL Eos # (Auto) (0-0.5) K/uL Baso # (Auto) (0-0.2) K/uL PT (9.0-12.0) Seconds INR (0.9-1.1) APTT (21.0-31.0) Seconds PTT Ratio Sodium (136-145) mmol/L Potassium (3.5-5.1) mmol/L Chloride (98-107) mmol/L Carbon Dioxide (21-32) mmol/L Anion Gap (3-11) BUN (7-18) mg/dl Creatinine (0.6-1.4) mg/dl Est Cr Clr Drug Dosing ml/min Est GFR ( Amer) Est GFR (Non-Af Amer) BUN/Creatinine Ratio (10-20) Glucose (70-99) mg/dl POC Glucose 113 H 116 H 147 H (70-99) Estimat Average Glucose mg/dl Hemoglobin A1c (4.5-5.6) % Calcium (8.5-10.1) mg/dl Total Bilirubin (0.2-1) mg/dl Direct Bilirubin (0-0.2) mg/dl AST (15-37) U/L ALT (12-78) U/L Alkaline Phosphatase (45-117) U/L Total Protein (6.4-8.2) gm/dl Albumin (3.4-5.0) gm/dl Hepatitis C Antibody (Neg) Blood Type Antibody Screen 02/11/19 02/12/19 02/12/19 Range/Units 20:34 06:31 06:31 WBC 11.26 H (4.8-10.8) K/uL RBC 3.77 L (4.7-6.1) M/uL Hgb 10.1 L (14.0-18.0) g/dL Hct 30.8 L (42-52) % MCV 81.7 (80-100) fL MCH 26.8 (25-34) pg MCHC 32.8 (32-36) g/dL RDW Std Deviation 49.3 H (36.4-46.3) fL RDW Coeff of Jane 16.4 H (11.5-14.5) % Plt Count 186 (130-400) K/uL MPV 9.2 (7.4-10.4) fL Immature Gran % (Auto) % Neut % (Auto) % Lymph % (Auto) % [place] % (Auto) % Eos % (Auto) % Baso % (Auto) % Immature Gran # (Auto) (0.00-0.02) K/uL Neut # (Auto) (1.4-6.5) K/uL Lymph # (Auto) (1.2-3.4) K/uL [place] # (Auto) (0.11-0.59) K/uL Eos # (Auto) (0-0.5) K/uL Baso # (Auto) (0-0.2) K/uL PT (9.0-12.0) Seconds INR (0.9-1.1) APTT (21.0-31.0) Seconds PTT Ratio Sodium 141 (136-145) mmol/L Potassium 3.9 (3.5-5.1) mmol/L Chloride 108 H (98-107) mmol/L Carbon Dioxide 28 (21-32) mmol/L Anion Gap 5.0 (3-11) BUN 13 (7-18) mg/dl Creatinine 0.82 (0.6-1.4) mg/dl Est Cr Clr Drug Dosing 79.5 ml/min Est GFR ( Amer) 104.6 Est GFR (Non-Af Amer) 90.2 BUN/Creatinine Ratio 15.8 (10-20) Glucose 120 H (70-99) mg/dl POC Glucose 201 H (70-99) Estimat Average Glucose mg/dl Hemoglobin A1c (4.5-5.6) % Calcium 8.6 (8.5-10.1) mg/dl Total Bilirubin (0.2-1) mg/dl Direct Bilirubin (0-0.2) mg/dl AST (15-37) U/L ALT (12-78) U/L Alkaline Phosphatase (45-117) U/L Total Protein (6.4-8.2) gm/dl Albumin (3.4-5.0) gm/dl Hepatitis C Antibody (Neg) Blood Type Antibody Screen 02/12/19 02/12/19 Range/Units 06:31 08:13 WBC (4.8-10.8) K/uL RBC (4.7-6.1) M/uL Hgb (14.0-18.0) g/dL Hct (42-52) % MCV (80-100) fL MCH (25-34) pg MCHC (32-36) g/dL RDW Std Deviation (36.4-46.3) fL RDW Coeff of Jane (11.5-14.5) % Plt Count (130-400) K/uL MPV (7.4-10.4) fL Immature Gran % (Auto) % Neut % (Auto) % Lymph % (Auto) % [place] % (Auto) % Eos % (Auto) % Baso % (Auto) % Immature Gran # (Auto) (0.00-0.02) K/uL Neut # (Auto) (1.4-6.5) K/uL Lymph # (Auto) (1.2-3.4) K/uL [place] # (Auto) (0.11-0.59) K/uL Eos # (Auto) (0-0.5) K/uL Baso # (Auto) (0-0.2) K/uL PT (9.0-12.0) Seconds INR (0.9-1.1) APTT (21.0-31.0) Seconds PTT Ratio Sodium (136-145) mmol/L Potassium (3.5-5.1) mmol/L Chloride (98-107) mmol/L Carbon Dioxide (21-32) mmol/L Anion Gap (3-11) BUN (7-18) mg/dl Creatinine (0.6-1.4) mg/dl Est Cr Clr Drug Dosing ml/min Est GFR ( Amer) Est GFR (Non-Af Amer) BUN/Creatinine Ratio (10-20) Glucose (70-99) mg/dl POC Glucose 131 H (70-99) Estimat Average Glucose mg/dl Hemoglobin A1c (4.5-5.6) % Calcium (8.5-10.1) mg/dl Total Bilirubin (0.2-1) mg/dl Direct Bilirubin (0-0.2) mg/dl AST (15-37) U/L ALT (12-78) U/L Alkaline Phosphatase (45-117) U/L Total Protein (6.4-8.2) gm/dl Albumin (3.4-5.0) gm/dl Hepatitis C Antibody Neg (Neg) Blood Type Antibody Screen Diagnostic Findings RIGHT KNEE 2 VIEWS History: Right total knee arthroplasty. Degenerative arthritis. Postop. FINDINGS: The patient is status post a right total knee arthroplasty. The hardware is intact. No fracture or dislocation. IMPRESSION: Right total knee arthroplasty. No evidence for hardware complication.
--- NOTE | 2019-02-12 09:54 | Anesthesiology Progress Note ---
Date of Service February 12, 2019 Anesthesia Post Procedure Vital Signs Vital Signs: Temp Pulse Pulse Pulse Resp BP Pulse Ox 02/12/19 08:00 36.8 C 61 16 123/69 94 02/12/19 03:19 36.8 C 67 14 177/79 H 97 02/12/19 00:38 169/79 H 02/11/19 23:43 67 175/83 H 02/11/19 23:04 36.5 C 72 14 189/78 H 95 02/11/19 21:05 58 L 15 95 02/11/19 19:03 36.6 C 60 16 142/68 H 95 02/11/19 15:18 36.6 C 54 L 16 151/71 H 95 02/11/19 14:08 36.5 C 64 15 177/72 H 95 02/11/19 13:20 195/82 H 02/11/19 13:00 69 17 200/95 H 98 02/11/19 12:01 52 L 16 153/80 H 98 02/11/19 11:35 50 L 18 142/75 H 95 02/11/19 11:00 36.9 C 52 L 12 135/72 98 02/11/19 10:45 36.3 C L 52 L 16 130/65 97 02/11/19 10:35 36.3 C L 51 L 16 138/62 96 02/11/19 10:25 36.3 C L 53 L 18 137/66 97 02/11/19 10:15 36.3 C L 53 L 18 127/63 99 02/11/19 10:05 36.3 C L 55 L 19 124/59 L 100 02/11/19 09:58 36.3 C L 55 L 16 124/56 L 100 Notes Mental Status: alert / awake / arousable and participated in evaluation Nausea / Vomiting: adequately controlled Pain: adequately controlled Airway Patency, RR, SpO2: stable & adequate BP & HR: stable & adequate Hydration State: stable & adequate Neuraxial Anesthesia: sensory block resolved
--- NOTE | 2019-02-12 11:28 | Hospitalist Progress Note ---
Date of Service February 12, 2019 Assessment & Plan (1) Total knee replacement status: pain control, DVT prophylaxis, discharge planning per ortho plan for PO pain control Aspirin 325mg BID okay for discharge from medical standpoint reminded patient to stay well hydrated, eat fiber, use stool softener or laxative if needed for BM (2) Atrial fibrillation with RVR: h/o such in normal sinus rhythm, on Diltiazem qAM no anticoagulation given status of Synagogue HR well controlled today (3) CAD (coronary artery disease): h/o CABG in no chest pain or angina since that time very active, easily performs 4 METS of activity on a daily basis cleared by cardiology for surgery pre op no chest pain post op, vitals stable will be on Aspirin 325mg BID for DVT prophylaxis (4) Diabetes: type I, 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, macrovascular complications with CAD continue to use insulin pump, patient comfortable managing on his own sugar well controlled this morning, no hypoglycemia (5) Asthma: mild, intermittent well controlled on Symbicort and Levalbuterol inhaler in the morning and nebulizer in the evening no wheezing on exam, breathing well (6) Acute blood loss as cause of postoperative anemia: Hb down to 10 from 12 BP stable no signs of active bleeding, Hb should increase over next few weeks (7) Elevated blood pressure reading: BP markedly elevated yesterday and over night BP normal this morning recommend follow up with PCP for BP reading he was in pain and in hospital, not concerned at this time Subjective patient doing well, having mild right knee pain, 3 out of 10 currently breathing well, no wheezing or coughing, no chest pain eating well + flatus but no BM seen by ortho, planning for PT/OT today, tentative plans for d/c to home with home therapy reviewed labs, Hb down slightly to 10 from 12 preop Cr and electrolytes stable updated family at the bedside Review of Systems Review of Systems: All systems reviewed & are unremarkable except as noted in HPI & below Musculoskeletal: + joint pain (right knee) Physical Exam Constitutional: WD/WN, vitals as above Eyes: PERRL, conjunctivae normal, anicteric sclerae ENMT: external ear and nose normal, oropharynx normal Neck: trachea midline, no thyromegaly Respiratory: normal respiratory effort, lungs clear to auscultation Cardiovascular: RRR, no murmur, no edema Gastrointestinal (Abdomen): normal bowel sounds, soft, nontender, no hepatosplenomegaly Musculoskeletal: no cyanosis or clubbing, extremities motor strength 5/5 Knee: + knee abnormal to inspection (right knee swollen, tender) and + surgical incision Skin: no rashes, warm and dry Neurologic: patellar DTR's 2+ bilat, sensation intact and PERRL, EOMI, accommodation nl, no face palsy, no dysarthria Psychiatric: A+Ox3, euthymic affect Lymphatic: no cervical or axillary lymphadenopathy Results & Data Vital Signs (Past 12 Hours) Vital Signs Temp Pulse Pulse Resp BP Pulse Ox 02/12/19 08:00 36.8 C 61 16 123/69 94 02/12/19 03:19 36.8 C 67 14 177/79 H 97 02/12/19 00:38 169/79 H 02/11/19 23:43 67 175/83 H Laboratory Results Laboratory Results - last 24 hr 02/11/19 02/11/19 02/11/19 12:09 17:26 20:34 WBC RBC Hgb Hct MCV MCH MCHC RDW Std Deviation RDW Coeff of Jane Plt Count MPV Sodium Potassium Chloride Carbon Dioxide Anion Gap BUN Creatinine Est Cr Clr Drug Dosing Est GFR ( Amer) Est GFR (Non-Af Amer) BUN/Creatinine Ratio Glucose POC Glucose 116 H 147 H 201 H Calcium Hepatitis C Antibody 02/12/19 02/12/19 02/12/19 06:31 06:31 06:31 WBC 11.26 H RBC 3.77 L Hgb 10.1 L Hct 30.8 L MCV 81.7 MCH 26.8 MCHC 32.8 RDW Std Deviation 49.3 H RDW Coeff of Jane 16.4 H Plt Count 186 MPV 9.2 Sodium 141 Potassium 3.9 Chloride 108 H Carbon Dioxide 28 Anion Gap 5.0 BUN 13 Creatinine 0.82 Est Cr Clr Drug Dosing 79.5 Est GFR ( Amer) 104.6 Est GFR (Non-Af Amer) 90.2 BUN/Creatinine Ratio 15.8 Glucose 120 H POC Glucose Calcium 8.6 Hepatitis C Antibody Neg 02/12/19 08:13 WBC RBC Hgb Hct MCV MCH MCHC RDW Std Deviation RDW Coeff of Jane Plt Count MPV Sodium Potassium Chloride Carbon Dioxide Anion Gap BUN Creatinine Est Cr Clr Drug Dosing Est GFR ( Amer) Est GFR (Non-Af Amer) BUN/Creatinine Ratio Glucose POC Glucose 131 H Calcium Hepatitis C Antibody Medications Administered Current Inpatient Medications Acetaminophen (Tylenol) 1,000 mg PO Q8 [facility] Stop: 03/13/19 13:59 Last Admin: 02/12/19 06:09 Dose: 1,000 mg Documented by: Al Hydrox/Mg Hydrox/Simethicone (Maalox) 15 ml PO Q4H PRN PRN Reason: Heartburn Stop: 03/13/19 11:08 Ascorbic Acid (Vitamin C) 500 mg PO BIDM [facility] Stop: 03/13/19 16:59 Last Admin: 02/12/19 08:48 Dose: 500 mg Documented by: Aspirin (Ecotrin) 325 mg PO BID [facility] Stop: 03/13/19 20:59 Last Admin: 02/12/19 08:47 Dose: 325 mg Documented by: Bisacodyl (Dulcolax) 10 mg NC DAILY PRN PRN Reason: Constipation Stop: 03/13/19 11:08 Budesonide/Formoterol Fumarate (Symbicort 160mcg/4.5mcg) 2 puffs INH BID [facility] Stop: 03/13/19 20:59 Last Admin: 02/12/19 08:48 Dose: 2 puffs Documented by: Dextrose (Dextrose 50%) 25 - 50 ml IV UD PRN; Protocol PRN Reason: Hypoglycemia Protocol Stop: 03/13/19 12:44 Diltiazem HCl (Cardizem Cd) 120 mg PO QAM [facility] Stop: 03/14/19 08:59 Last Admin: 02/12/19 08:47 Dose: 120 mg Documented by: Diphenhydramine HCl (Benadryl) 25 mg IV Q8H PRN PRN Reason: Itching Stop: 03/13/19 11:08 Docusate Sodium (Colace) 100 mg PO BID [facility] Stop: 03/13/19 20:59 Last Admin: 02/12/19 08:48 Dose: 100 mg Documented by: Ferrous Gluconate (Ferrous Gluconate) 324 mg PO BIDM [facility] Stop: 03/13/19 16:59 Last Admin: 02/12/19 08:48 Dose: 324 mg Documented by: Fluticasone Propionate (Flonase) 2 sprays NA DAILY PRN PRN Reason: Nasal Congestion Stop: 03/13/19 11:08 Glucagon (Glucagen) 1 mg SQ UD PRN; Protocol PRN Reason: Hypoglycemia Protocol Stop: 03/13/19 12:44 Glucose (Glucose 40%) 15 - 30 gm PO UD PRN; Protocol PRN Reason: Hypoglycemia Protocol Stop: 03/13/19 12:44 Glucose (Dex4 Glucose) 4 - 8 tabs PO UD PRN; Protocol PRN Reason: Hypoglycemia Protocol Stop: 03/13/19 12:44 Hydromorphone HCl (Dilaudid) 0.5 mg IV Q2H PRN PRN Reason: Pain Stop: 02/25/19 11:08 Insulin Human Lispro (Humalog Insulin Pump) 1 ea N/A ACHS [facility]; Protocol Stop: 03/13/19 16:29 Last Admin: 02/12/19 08:51 Dose: 1 ea Documented by: Insulin Human Lispro (Humalog) 0 units SC PRN PRN PRN Reason: REFILL Stop: 03/13/19 12:44 Levalbuterol HCl (Xopenex 0.63 Mg/3 Ml Neb) 0.63 mg INH HS [facility] Stop: 03/13/19 20:59 Last Admin: 02/11/19 21:05 Dose: 0.63 mg Documented by: Levalbuterol HCl (Xopenex Hfa) 2 puffs INH Q6H PRN PRN Reason: Wheezing Stop: 03/13/19 11:08 Magnesium Hydroxide (Milk Of Magnesia) 30 ml PO Q6H PRN PRN Reason: Constipation Stop: 03/13/19 11:08 Magnesium Oxide (Mag-Ox) 400 mg PO DAILY [facility] Stop: 03/14/19 08:59 Last Admin: 02/12/19 08:47 Dose: 400 mg Documented by: Metoclopramide HCl (Reglan) 10 mg IV Q6H PRN PRN Reason: Nausea And Vomiting Stop: 03/13/19 11:08 Miscellaneous (Carbohydrates For Hypoglycemia) 15 - 30 gm PO UD PRN PRN Reason: Hypoglycemia Treatment Stop: 03/13/19 12:44 Multivitamins (Multivitamin Tab) 1 tab PO QAM [facility] Stop: 03/14/19 08:59 Last Admin: 02/12/19 08:48 Dose: 1 tab Documented by: Naloxone HCl (Narcan) 0.1 mg IV Q5M PRN PRN Reason: Oversedation/Resp Depression Stop: 03/13/19 11:08 Ondansetron HCl (Zofran) 4 mg IV Q6H PRN PRN Reason: Nausea And Vomiting Stop: 03/13/19 11:08 Oxycodone HCl (Roxicodone Immediate Rel) 5 - 10 mg PO Q4H PRN PRN Reason: Pain Stop: 02/25/19 11:08 Last Admin: 02/12/19 03:57 Dose: 5 mg Documented by: [facility]opraz[facility]ix) [facility] Stop: 03/14/19 08:59 Last Admin: 02/12/19 08:47 Dose: 40 mg Documented by: Sennosides (Senokot) 17.2 mg PO [facility] Stop: 03/13/19 20:59 Last Admin: 02/11/19 21:34 Dose: 17.2 mg Documented by: PG Care Time/CCT Total # of Minutes Spent Total Time Spent with Patient: Total time spent is greater than 50% in coordination of care (as documented) at patient's floor/unit and/or counseling patient:
--- NOTE | 2019-02-13 08:34 | Discharge Summary ---
Date of Service February 13, 2019 Discharge Data Consultations 02/11/19 11:09 Consult Case Management - Discharge Planning Routine Consult Hospitalist Routine Procedures Performed Operation Date: 02/11/19 07:00 Actual Procedures p Right Total Knee Arthroplasty(Right) - Justin Solis MD Hospital Course (1) Degenerative joint disease of knee, right: Patient was admitted to [facility] on February 11, 2019 after undergoing an elective right total knee arthroplasty by Dr. Justin Solis. His surgery was performed with spinal anesthesia and peripheral nerve block. He was given 1 g of IV Ancef for surgical prophylaxis which was continued for 24 hours after surgery. He tolerated the surgery well without any intraoperative or postoperative complications. Postoperatively, in the recovery room x-rays were obtained of his right total knee arthroplasty and showed a stable prosthesis with no evidence of fractures. He was allowed out of bed, weight- bear as tolerated on his right lower extremity with the assistance of a walker and a knee immobilizer on his right knee until quad control regained. He was given a diabetic diet during his inpatient stay and he tolerated that well. His pain was well controlled during his inpatient stay. He did not develop any postoperative complications. He was seen and evaluated by physical therapy and outpatient therapy and did very well with them and was independent. Postoperative labs and vital signs were stable. His dressing Was changed on postoperative day one, Silverlon was placed. He was placed on aspirin 325 mg twice daily for DVT prophylaxis. PHYLICIA stockings and AV impulse boots were also used for postoperative DVT prophylaxis. We also encouraged early mobility. He did well ambulating in his room. He was seen and evaluated by the hospitalist service and consultation for postoperative medical management. His medical conditions remained stable during his inpatient stay. He was seen by case management and elected to go home with his with outpatient physical therapy. He was deemed safe for home by physical therapy and occupational therapy and was discharged to his home in stable condition February 12, 2019. Discharge instructions were provided. All questions were answered. Discharge Instructions as per EMR
== END 2019-02-12 18:50 | disposition home or self-care (01) | DRG 470 ==
LOC: ASU 05:19 → 3E 10:15

== ENCOUNTER 2020-12-20 21:12 | Inpatient (IN) ==
--- NOTE | 2020-12-20 21:33 | Emergency Department Note ---
Impression & Plan Atrial fibrillation with RVR ED Provider Note NAME: ANJEL JETER AGE: 70 SEX: M : 1950 ARRIVES VIA: Walk-In INFORMANT: Patient, ED PROVIDER(S): Yuri Gibson MD Chief Complaint: Palpitations, possible A. fib HPI: Patient does present with concern for palpitations and possible atrial fibrillation. The patient does have a known history of A. fib but states that in the past he is typically been in a regular rhythm but is on rate control medication. The patient does take an aspirin but does not take anticoagulant medications. The patient is followed with Dr. Reed. The patient over the last several weeks has had history of asthma and when he was seen he was started on Sudafed twice daily as well as Mucinex with antihistamine. Patient does admit to drinking caffeinated beverages but denies any alcohol tobacco or drug use. Patient denies any fevers or chills. Patient denies any nausea vomiting or chest pain. The patient states that he had noticed the palpitations beginning yesterday lasted for approximately 2 hours. Patient states that today this began around 8 PM and it has been persistent since then. Patient does have some chronic shortness of breath with his history of asthma but no recent changes. Patient denies any lower extremity swelling. The patient states he has been compliant with his medications ROS: See HPI for pertinent positives and negatives. A total of 10 systems were reviewed and otherwise negative. Past medical history: See below Surgical history: See below Social history: See below Physical Exam: GENERAL: Wearing glasses and a mask. NAD, non-toxic. EYE EXAM: Normal conjunctiva. PERRL, no anisocoria and EOM's grossly intact w/o pain. NECK: Supple, no nuchal rigidity, no adenopathy, non-tender. No signs of meningismus. LUNGS: Clear to auscultation. Normal chest wall mechanics. HEART: Tachycardic, irregularly irregular, no MRG. ABDOMEN: Abdomen soft, non-tender, normo-active bowel sounds, no masses, no rebound or guarding. BACK: No CVA TTP. SKIN: No rashes and no bruising. UPPER EXTREMITIES: Upper extremities are grossly normal. LOWER EXTREMITIES: Grossly normal, no edema. Negative Homans' sign bilaterally. NEURO EXAM: A&O x3, cranial nerves II-XII grossly intact, normal speech, moves all 4 extremities on command w/o issue. Differential diagnoses: Premature contractions, electrolyte abnormality, cardiac dysrhythmia, thyroid dysfunction, pulmonary embolism, infection, gastrointestinal, as well as other pathologies. Course: Patient was seen and evaluated the bedside. Full history physical exam was performed. EKG interpreted by me Normal sinus rhythm, rate of 68, normal intervals, normal axis, no obvious ST changes. Repeat at 2251 A. fib with RVR, rate of 135, normal QRS, normal axis, slight depressions anteriorly and laterally Repeat at 2341 A. fib, rate of 96, normal QRS, normal axis. Imaging Studies: 1 view chest x-ray No acute cardiopulmonary abnormality, sternotomy wires in place. Cardiac monitoring: An order was placed for continuous cardiac monitoring. The monitor shows a rate of 112 with irregularly irregular rhythm. MDM: Patient did present with concern for A. fib. The patient believes that he has been in sinus in the past and the patient is not anticoagulated. The patient does take an aspirin. The patient spontaneously converted initially but then continued A. fib with RVR and a rate of 130s. Patient was given Cardizem. Patient has normal white count H&H and platelet count. Kidney function does show prerenal azotemia. The patient did receive IV fluids. Troponin not detectable. TSH normal. Upon subsequent reassessment the patient was still tachycardic any repeat dose of Cardizem was ordered. The patient was running in the 80s and 90s at that time. Given the patient still in an irregular irregular rhythm given the patient's stroke risk with a [id number] score of greater than 2 heparin was ordered. Also of note this also could have been exacerbated by the antihistamine and Mucinex as well as the scheduled Sudafed that he has been taking for the last 10 or so days. I did speak with the on-call hospitalist Dr. Lincoln and the patient was admitted to the medicine service. Critical Care: I have personally spent 47 minutes of critical care time in direct management of this patient. This includes bedside care, interpretation of diagnostic studies, and testing, discussion with consultants, patient, and family members, and other require inpatient management activities. This 47 minutes is in excess of all separately billable procedures. Past Med/Surg History Medical History Chest wall mass Chronic sinusitis Cough productive of clear sputum History of kidney stones Hypomagnesemia syndrome Osteoarthritis Pneumonia Refusal of blood transfusions as patient is Worship Surgical History H/O colonoscopy H/O lithotripsy 03/28/13: LMA #4 History of cardiac cath 1997 - deb --> CABG History of open reduction and internal fixation (ORIF) procedure left humerous History of right knee joint replacement 02/11/2019 [facility] Hx of heart bypass surgery 1997 - triple deb Hx of hernia repair Left inguinal: 06/04/12: LMA #5 attempted but didn't seal, LMA #4 successful Hx of sinus surgery Family History Father Family history of diabetes mellitus Coronary heart disease Myocardial infarction Heart disease Brother Family history of diabetes mellitus Mother Family history of diabetes mellitus Essential hypertension Stroke Denies family history of Colon cancer Ovarian cancer Prostate cancer Breast cancer Social History Smoking Status: Never smoker Second Hand Exposure: No; Hx Alcohol Use: Yes Alcohol type: beer, wine and hard liquor Alcohol type Comment: 1-2 a week Hx Substance Use: No Preferred Language: Kazakh Communication Ability: Effective Visual Impairment: Limited Hearing Ability: Normal Beliefs That Will Affect Care: Mandaeism Mandaeism Beliefs: JEHOVAH WITNESS - NO BLOOD marital status: Current Living Situation: Spouse current occupational status: retired Feels Safe at Home: Yes Childhood Exposure to Second-Hand Smoke: Yes Dental Care, Regularly: Yes Physical Activity Frequency: 3-4 Times per Week Physical Activity Frequency Comment: walking Seatbelt Use: always Assistive Devices: Glasses Allergies Allergies Allergy/AdvReac Type Severity Reaction Status Date / Time Smabeaf-Uct-Hzc Reductase Allergy Mild Myalgia Verified 12/20/20 22:24 Inhibitor tamsulosin AdvReac Mild Nausea Verified 12/20/20 22:24 Home Meds Home Medications Medication Instructions Recorded Confirmed magnesium oxide 500 mg PO QAM 01/20/19 12/20/20 cholecalciferol (vitamin D3) 50 2,000 units PO QAM cap 02/14/19 12/20/20 mcg (2,000 unit) capsule blood sugar diagnostic #10 ea 02/27/19 12/08/20 aspirin 81 mg tablet,delayed 81 mg PO QAM 06/27/19 12/20/20 release Lantus Solostar U-100 Insulin See Rx Instructions SQ DAILY PRN 07/04/19 12/20/20 ascorbic acid (vitamin C) [Vitamin 500 mg PO QAM 07/04/19 12/20/20 C] evolocumab [Repatha Syringe] 140 mg SUBCUT .[id number] 12/20/20 12/20/20 guaifenesin [Mucinex] 600 mg PO BID 12/20/20 12/20/20 insulin lispro [Humalog U-100 0 unit CONTINUOUS SUBCUTANEOUS 12/20/20 12/20/20 Insulin] INFUSION CONTINOUS Previous Rx's Medication Instructions Recorded montelukast 10 mg tablet 10 mg PO HS #90 tab 11/20/19 miscellaneous medical supply #1 ea 12/03/19 naproxen 500 mg tablet 500 mg PO BID PRN #14 tab 03/24/20 budesonide-formoterol HFA 160 2 inh INH BID #30.6 g 03/31/20 mcg-4.5 mcg/actuation aerosol inhaler fluticasone propionate 50 2 spray INTRANASAL DAILY PRN #48 g 03/31/20 mcg/actuation nasal spray,suspension metformin 500 mg tablet 500 mg PO BID #180 tab 04/21/20 Flutter Valve #1 ea 05/19/20 celecoxib 200 mg capsule 200 mg PO QAM #90 cap 06/17/20 pantoprazole 40 mg tablet,delayed 40 mg PO QAM #90 tab 06/17/20 release lisinopril 10 mg tablet 10 mg PO DAILY #90 tab 07/22/20 ranolazine 500 mg tablet,extended 500 mg PO BID #180 tab 09/22/20 release,12 hr levalbuterol tartrate 45 2 inh INH Q6H PRN #3 inhaler 09/24/20 mcg/actuation aerosol inhaler levalbuterol HCl 0.63 mg/3 mL 0.63 mg INHALATION Q6H PRN #360 ml 10/22/20 solution for nebulization diltiazem HCl 120 mg capsule,24 120 mg PO QPM #90 cap 12/03/20 hr,extended release pseudoephedrine HCl 120 mg 120 mg PO BID 30 Days #60 tab 12/08/20 tablet,extended release sodium chloride, sodium See Rx Instructions .ROUTE 12/08/20 bicarb-nasal rinse squeeze bottle .COMPLEX #50 ea with packet Results & Data (ED) Vital Signs Vital Signs - 24 hr 12/20/20 21:21 12/20/20 21:35 12/20/20 21:57 Temperature 36.6 C Temperature Source Temporal Artery Scan Pulse Rate 120 H 140 H 64 Pulse Rate from SpO2 Sensor 64 Respiratory Rate 18 21 16 Respiratory Effort / Characteristics Non-Labored Spontaneous Respiratory Depth Normal Respiratory Pattern Regular Blood Pressure 146/85 H 141/84 H Blood Pressure Mean 105 103 Blood Pressure Position Sitting Pulse Oximetry 96 96 Oxygen Delivery Method Room Air Sepsis Recent Fever Within 48 Hours No Sepsis New/Unexplained Change in Mental Status No Sepsis Action Taken by Nursing No Action Required 12/20/20 22:00 12/20/20 22:01 12/20/20 22:04 Temperature Temperature Source Pulse Rate 57 L 62 Pulse Rate from SpO2 Sensor 58 L 62 Respiratory Rate 17 12 Respiratory Effort / Characteristics Respiratory Depth Respiratory Pattern Blood Pressure 140/78 Blood Pressure Mean 98 Blood Pressure Position Pulse Oximetry 95 95 95 Oxygen Delivery Method Room Air Sepsis Recent Fever Within 48 Hours Sepsis New/Unexplained Change in Mental Status Sepsis Action Taken by Nursing 12/20/20 22:34 12/20/20 22:55 12/20/20 23:05 Temperature Temperature Source Pulse Rate 143 H 110 H 75 Pulse Rate from SpO2 Sensor 144 H 121 H 76 Respiratory Rate 18 21 20 Respiratory Effort / Characteristics Respiratory Depth Respiratory Pattern Blood Pressure 126/103 H 131/99 Blood Pressure Mean 110 109 Blood Pressure Position Pulse Oximetry 94 95 94 Oxygen Delivery Method Room Air Sepsis Recent Fever Within 48 Hours Sepsis New/Unexplained Change in Mental Status Sepsis Action Taken by Nursing 12/21/20 00:01 Temperature Temperature Source Pulse Rate 90 Pulse Rate from SpO2 Sensor 88 Respiratory Rate 13 Respiratory Effort / Characteristics Respiratory Depth Respiratory Pattern Blood Pressure 148/84 H Blood Pressure Mean 105 Blood Pressure Position Pulse Oximetry 96 Oxygen Delivery Method Room Air Sepsis Recent Fever Within 48 Hours Sepsis New/Unexplained Change in Mental Status Sepsis Action Taken by Nursing Laboratory Data Result diagrams: 12/20/20 21:38 12/20/20 21:38 Lab Results 12/20/20 12/20/20 Range/Units 21:38 21:38 WBC 6.19 (4.8-10.8) K/uL RBC 4.63 L (4.7-6.1) M/uL Hgb 14.7 (14.0-18.0) g/dL Hct 43.4 (42-52) % MCV 93.7 (80-100) fL MCH 31.7 (25-34) pg MCHC 33.9 (32-36) g/dL RDW Std Deviation 49.9 H (36.4-46.3) fL RDW Coeff of Jane 14.7 H (11.5-14.5) % Plt Count 216 (130-400) K/uL MPV 10.6 H (7.4-10.4) fL Immature Gran % (Auto) 0.2 % Neut % (Auto) 61.3 % Lymph % (Auto) 20.7 % [place] % (Auto) 9.2 % Eos % (Auto) 7.6 % Baso % (Auto) 1.0 % Neut # (Auto) 3.80 (1.4-6.5) K/uL Lymph # (Auto) 1.28 (1.2-3.4) K/uL [place] # (Auto) 0.57 (0.11-0.59) K/uL Eos # (Auto) 0.47 (0-0.5) K/uL Baso # (Auto) 0.06 (0-0.2) K/uL Immature Gran # (Auto) 0.01 (0.00-0.02) K/uL Sodium 140 (136-145) mmol/L Potassium 4.3 (3.5-5.1) mmol/L Chloride 107 (98-107) mmol/L Carbon Dioxide 28 (21-32) mmol/L Anion Gap 6.0 (3-11) BUN 31 H (7-18) mg/dl Creatinine 0.99 (0.6-1.4) mg/dl Est Cr Clr Drug Dosing 64.0 ml/min Est GFR ( Amer) 88.4 ml/min Est GFR (Non-Af Amer) 76.3 ml/min BUN/Creatinine Ratio 31.3 H (10-20) Glucose 136 H (70-99) mg/dl Calcium 9.4 (8.5-10.1) mg/dl Phosphorus 2.9 (2.5-4.9) mg/dl Magnesium 1.9 (1.8-2.4) mg/dl Total Bilirubin 0.3 (0.2-1) mg/dl AST 10 L (15-37) U/L ALT 16 (12-78) U/L Alkaline Phosphatase 76 (45-117) U/L Troponin I < 0.015 (0-0.045) ng/ml Total Protein 7.1 (6.4-8.2) gm/dl Albumin 3.6 (3.4-5.0) gm/dl Globulin 3.5 (2.5-4.0) gm/dl Albumin/Globulin Ratio 1.0 (0.9-2) TSH 4.230 (0.300-4.500) uIu/ml Administered Medications Discontinued Medications Diltiazem HCl (Diltiazem Hcl 5 Mg/Ml 5 Ml Vial) 17.5 mg IV NOW STA Stop: 12/20/20 21:43 Last Admin: 12/20/20 22:53 Dose: 17.5 mg Documented by: [id number] Cosigned by: [id number] Diltiazem HCl (Diltiazem Hcl 5 Mg/Ml 5 Ml Vial) 20 mg IV NOW STA Stop: 12/20/20 23:29 Last Admin: 12/20/20 23:54 Dose: 20 mg Documented by: [id number] Cosigned by: [id number] Sodium Chloride (Nss) 500 mls @ 999 mls/hr IV .Q31M MARISOL Stop: 12/20/20 22:15 Last Infusion: 12/20/20 22:31 Dose: 0 mls/hr Documented by: [id number] Admin: 12/20/20 21:59 Dose: 999 mls/hr Documented by: [id number] Discharge Plan Visit Data Chief Complaint: Chest Pain Stated Complaint: afib, chest pressure, burping, light headed ED Provider: Yuri Gibson Discharge Problem: Atrial fibrillation with RVR Forms Stand Alone Forms: [employer] Prescriptions Prescriptions: No Action (DME) Contour Next Test Strips strip See Dose Instructions .ROUTE .MEDSUPPLY Qty: 10 RF: 0 montelukast 10 mg tablet 10 mg PO HS Qty: 90 RF: 3 fluticasone propionate 50 mcg/actuation spray,suspension 2 spray INTRANASAL DAILY PRN (Reason: Nasal Congestion) Qty: 48 RF: 1 Symbicort 160-4.5 mcg/actuation HFA aerosol inhaler 2 inh INH BID Qty: 30.6 RF: 1 metformin 500 mg tablet 500 mg PO BID Qty: 180 RF: 3 (DME) Flutter Valve Device See Rx Instructions .ROUTE .MEDSUPPLY Qty: 1 RF: 0 lisinopril 10 mg tablet 10 mg PO DAILY Qty: 90 RF: 3 levalbuterol tartrate [Xopenex HFA] 45 mcg/actuation HFA aerosol inhaler 2 inh INH Q6H PRN (Reason: shortness of breath) Qty: 3 RF: 1 levalbuterol HCl 0.63 mg/3 mL solution for nebulization 0.63 mg inhalation Q6H PRN (Reason: shortness of breath or wheezing) Qty: 360 RF: 11 diltiazem HCl 120 mg capsule,extended release 24 hr 120 mg PO QPM Qty: 90 RF: 3 aspirin [Adult Low Dose Aspirin] 81 mg tablet,delayed release (DR/EC) 81 mg PO QAM RF: 0 pseudoephedrine HCl [Sudafed 12 Hour] 120 mg tablet extended release 120 mg PO BID 30 Days Qty: 60 RF: 3 Neilmed Sinus Rinse Complete Packet With Rinse Device See Rx Instructions .ROUTE .COMPLEX Qty: 50 RF: 3 (DME) CPAP Supplies Misc See Rx Instructions .ROUTE .MEDSUPPLY Qty: 1 RF: 0 naproxen 500 mg tablet 500 mg PO BID PRN (Reason: pain) Qty: 14 RF: 1 cholecalciferol (vitamin D3) 2,000 unit capsule 2,000 units PO QAM RF: 0 celecoxib 200 mg capsule 200 mg PO QAM Qty: 90 RF: 3 pantoprazole 40 mg tablet,delayed release (DR/EC) 40 mg PO QAM Qty: 90 RF: 3 ranolazine 500 mg tablet extended release 12 hr 500 mg PO BID Qty: 180 RF: 3 magnesium oxide 500 mg Tablet 500 mg PO QAM RF: 0 ascorbic acid (vitamin C) [Vitamin C] 500 mg tablet 500 mg PO QAM RF: 0 Lantus Solostar U-100 Insulin 100 unit/mL (3 mL) insulin pen See Rx Instructions SQ DAILY PRN (Reason: UD) RF: 0 guaifenesin [Mucinex] 600 mg Tablet Extended Release 12hr 600 mg PO BID RF: 0 insulin lispro [Humalog U-100 Insulin] 100 unit/mL solution 0 unit continuous subcutaneous infusion CONTINOUS RF: 0 Repatha Syringe 140 mg/mL syringe 140 mg subcut .[id number] RF: 0
[2020-12-20] MEDS ORDERED: dilTIAZem HCl 5 MG/ML 5 ML VIAL IV STA ×2 (21:42→23:28)
[2020-12-20] MEDS ORDERED: SODIUM CHLORIDE 0.9% 500 ML IV SCH (21:45)
[2020-12-20 21:57] LABS: Basophils # (auto) 0.06 K/uL (0-0.2); Eosinophils # (auto) 0.47 K/uL (0-0.5); Eosinophils % (auto) 7.6 %; Hematocrit (blood only) 43.4 % (42-52); Hemoglobin 14.7 g/dL (14.0-18.0); Immature Granulocytes # (auto) 0.01 K/uL (0.00-0.02); Immature Granulocytes % (auto) 0.2 %; Lymphocytes # (auto) 1.28 K/uL (1.2-3.4); Lymphocytes % (auto) 20.7 %; Mean Corpuscular Hemoglobin 31.7 pg (25-34); Mean Corpuscular Hgb Conc 33.9 g/dL (32-36); Mean Corpuscular Volume 93.7 fL (80-100); Mean Platelet Volume 10.6 fL (7.4-10.4); Monocytes # (auto) 0.57 K/uL (0.11-0.59); Monocytes % (auto) 9.2 %; Neutrophils % (auto) 61.3 %; Platelet Count 216 K/uL (130-400); RDW Coefficient of Variation 14.7 % (11.5-14.5); RDW Standard Deviation 49.9 fL (36.4-46.3); Red Blood Count 4.63 M/uL (4.7-6.1); White Blood Count 6.19 K/uL (4.8-10.8)
[2020-12-20 22:04] LABS: Alanine Aminotransferase 16 U/L (12-78); Albumin Level 3.6 gm/dl (3.4-5.0); Aspartate Aminotransferase 10 U/L (15-37); BUN Creatinine Ratio 31.3 (10-20); Blood Urea Nitrogen 31 mg/dl (7-18); Calcium 9.4 mg/dl (8.5-10.1); Carbon Dioxide 28 mmol/L (21-32); Chloride 107 mmol/L (98-107); Est GFR (African American) 88.4 ml/min; Est GFR (Non-African American) 76.3 ml/min; Glucose 136 mg/dl (70-99); Magnesium 1.9 mg/dl (1.8-2.4); Potassium 4.3 mmol/L (3.5-5.1); Sodium 140 mmol/L (136-145)
[2020-12-20 22:15] LABS: Alkaline Phosphatase 76 U/L (45-117); Bilirubin,Total 0.3 mg/dl (0.2-1); Globulin 3.5 gm/dl (2.5-4.0); Phosphorus 2.9 mg/dl (2.5-4.9); Total Protein 7.1 gm/dl (6.4-8.2); Troponin I < 0.015 ng/ml (0-0.045)
[2020-12-21] MEDS ORDERED: Heparin IV Adult Wt-Based Standard *NO* Bolus Protocol ONE (00:15)
[2020-12-21] MEDS ORDERED: HEPARIN SODIUM/DEXTROSE 25,000 UNITS/500 ML BAG IV SCH (00:30)
[2020-12-21 00:46] LABS: INR 0.9 (0.9-1.1); Prothrombin Time 9.5 Seconds (9.0-12.0)
--- NOTE | 2020-12-21 01:48 | History & Physical Report ---
Date of Service December 21, 2020 Assessment & Plan (1) Atrial fibrillation with RVR: Noah Gamboa is a 70-year-old male with past medical history significant for hypertension, obstructive sleep apnea, type 1 diabetes, known A. fib, moderate persistent asthma; who presents for concerns atrial fibrillation with rapid ventricular rate. A. fib with RVR: -Tachycardic to 140 on presentation to ER -Requiring multiple boluses of Cardizem IV for control of heart rate -Telemetry demonstrating concerns for continued atrial fibrillation -Initial EKGs in ED demonstrating potential burn return to normal sinus rhythm; subsequent EKG with signs of atrial fibrillation with RVR -Patient previously did not want to be on anticoagulation as he desired to avoid potential blood transfusions (is a [employer] and) if there were to be complications -Recent conversations with police communications dispatcher demonstrated potential consideration for initiation on anticoagulation -Cardiology consulted: Patient would prefer to continue to discuss anticoagulation with Dr. Reed, versus other methods of preventing potential complications from A. fib -Per patient request will hold off on anticoagulation at this time until discussions with cardiology have been completed -Continue home Cardizem at this time Type 1 diabetes: -Typically uses pump at home, however for antibiotic supplies with him in order to do for exchange while here -Transition to SSI while inpatient with BSGs ACHS Hypertension: -Continue home lisinopril Moderate persistent asthma: -Continue home inhaler regimen with conversion as needed to hospital formulary CODE STATUS: DNI, no mechanical ventilation Diet: Carb consistent DVT prophylaxis: Deferred at this time (2) Diabetes type 1, controlled: (3) Dyslipidemia: (4) Hypertension: (5) Moderate persistent asthma: History of Present Illness Primary Care Provider: Mat Anne DO Noah Gamboa 70-year-old male with past medical history significant for hypertension, obstructive sleep apnea, type 1 diabetes, known A. fib, moderate persistent asthma; who presents for concerns atrial fibrillation with rapid ventricular rate. Earlier in the evening, patient started to feel some pal pitations and when using his heart monitor on his smart watch and phone did notice that he had return into atrial fibrillation with a faster heart rate. This is been coming more more frequently over the last several weeks/months and given this more frequent occurrence he has been considering more the role of anticoagulants that he previously wanted to avoid. Previously has been hesitant to utilize his medications as as concern remained that long-term as a [employer] he would not want to receive blood transfusions and if any accidents were to potentially happen this could be potentially life-threatening while on an anticoagulant. However as he is growing older his main concern is remaining more functional at this time, and risk of having a stroke as a result of his atrial fibrillation has caused him to start to second-guess this previous hesitance. Desires to have further conversations, continuing previous conversations had with Dr. Reed, with cardiology while he is inpatient as he would like to get that started if that is agreed upon by both himself his and the cardiologists. Upon discussions of CODE STATUS; patient endorses that while he had never really given this much thought his initial inclination would be for no intubation or mechanical ventilation, however would be accepting of chest compressions, defibrillation, alternative airways other than intubation, and medication standard for cardiac resuscitation attempts. Allergies Allergy/AdvReac Type Severity Reaction Status Date / Time [id number] Reductase Allergy Mild Myalgia Verified 12/20/20 22:24 Inhibitor tamsulosin AdvReac Mild Nausea Verified 12/20/20 22:24 Home Medications Medication Instructions Recorded Confirmed Type magnesium oxide 500 mg PO QAM 01/20/19 12/20/20 History cholecalciferol (vitamin D3) 50 2,000 units PO QAM cap 02/14/19 12/20/20 History mcg (2,000 unit) capsule blood sugar diagnostic #10 ea 02/27/19 12/08/20 History aspirin 81 mg tablet,delayed 81 mg PO QAM 06/27/19 12/20/20 History release Lantus Solostar U-100 Insulin See Rx Instructions SQ DAILY PRN 07/04/19 12/20/20 History ascorbic acid (vitamin C) [Vitamin 500 mg PO QAM 07/04/19 12/20/20 History C] montelukast 10 mg tablet 10 mg PO HS #90 tab 11/20/19 12/20/20 Rx miscellaneous medical supply #1 ea 12/03/19 12/08/20 Rx naproxen 500 mg tablet 500 mg PO BID PRN #14 tab 03/24/20 12/20/20 Rx budesonide-formoterol HFA 160 2 inh INH BID #30.6 g 03/31/20 12/20/20 Rx mcg-4.5 mcg/actuation aerosol inhaler fluticasone propionate 50 2 spray INTRANASAL DAILY PRN #48 g 03/31/20 12/20/20 Rx mcg/actuation nasal spray,suspension metformin 500 mg tablet 500 mg PO BID #180 tab 04/21/20 12/20/20 Rx Flutter Valve #1 ea 05/19/20 12/08/20 Rx celecoxib 200 mg capsule 200 mg PO QAM #90 cap 06/17/20 12/20/20 Rx pantoprazole 40 mg tablet,delayed 40 mg PO QAM #90 tab 06/17/20 12/20/20 Rx release lisinopril 10 mg tablet 10 mg PO DAILY #90 tab 07/22/20 12/20/20 Rx ranolazine 500 mg tablet,extended 500 mg PO BID #180 tab 09/22/20 12/20/20 Rx release,12 hr levalbuterol tartrate 45 2 inh INH Q6H PRN #3 inhaler 09/24/20 12/20/20 Rx mcg/actuation aerosol inhaler levalbuterol HCl 0.63 mg/3 mL 0.63 mg INHALATION Q6H PRN #360 ml 10/22/20 12/20/20 Rx solution for nebulization diltiazem HCl 120 mg capsule,24 120 mg PO QPM #90 cap 12/03/20 12/20/20 Rx hr,extended release sodium chloride, sodium See Rx Instructions .ROUTE 12/08/20 12/20/20 Rx bicarb-nasal rinse squeeze bottle .COMPLEX #50 ea with packet Repatha Syringe 140 mg SUBCUT .[id number] 12/20/20 12/20/20 History guaifenesin [Mucinex] 600 mg PO BID 12/20/20 12/20/20 History insulin lispro [Humalog U-100 0 unit CONTINUOUS SUBCUTANEOUS 12/20/20 12/20/20 History Insulin] INFUSION CONTINOUS apixaban [Eliquis] 5 mg PO BID #60 tab 12/21/20 Rx Past Med/Surg History Medical History Chest wall mass Chronic sinusitis Cough productive of clear sputum History of kidney stones Hypomagnesemia syndrome Osteoarthritis Pneumonia Refusal of blood transfusions as patient is Anglican Surgical History H/O colonoscopy H/O lithotripsy 03/28/13: LMA #4 History of cardiac cath 1997 - deb --> CABG History of open reduction and internal fixation (ORIF) procedure left humerous History of right knee joint replacement 02/11/2019 [facility] Hx of heart bypass surgery 1997 - triple deb Hx of hernia repair Left inguinal: 06/04/12: LMA #5 attempted but didn't seal, LMA #4 successful Hx of sinus surgery Family History Father Family history of diabetes mellitus Coronary heart disease Myocardial infarction Heart disease Brother Family history of diabetes mellitus Mother Family history of diabetes mellitus Essential hypertension Stroke Denies family history of Colon cancer Ovarian cancer Prostate cancer Breast cancer Social History Smoking Status: Never smoker Second Hand Exposure: No; Hx Alcohol Use: Yes Alcohol type: beer and wine Alcohol type Comment: 1-2 a week Hx Substance Use: No Preferred Language: Cook Islander Communication Ability: Effective Visual Impairment: Limited Hearing Ability: Normal Gel Coat Sprayer Required: No Beliefs That Will Affect Care: L[employer] L[employer] Day Beliefs: jehovah witness marital status: Current Living Situation: Spouse current occupational status: retired Feels Safe at Home: Yes Childhood Exposure to Second-Hand Smoke: Yes Dental Care, Regularly: Yes Physical Activity Frequency: 3-4 Times per Week Physical Activity Frequency Comment: walking Seatbelt Use: always Assistive Devices: Glasses Review of Systems Review of Systems: All systems reviewed & are unremarkable except as noted in HPI & below Physical Exam Constitutional: WD/WN, vitals as above Eyes: PERRL, conjunctivae normal, anicteric sclerae Respiratory: normal respiratory effort, lungs clear to auscultation Auscultation: no crackles, no rales, no rhonchi and no wheezes Cardiovascular: Rate/Rhythm: + irregularly irregular Heart Sounds: no gallop, no murmur and no cardiac rub Vessels: normal peripheral pulses; no JVD Extremities: no edema Gastrointestinal (Abdomen): Inspection/Auscultation: normal bowel sounds; abdomen not distended Percussion/Palpation: abdomen soft; abdomen nontender and no guarding Musculoskeletal: no cyanosis or clubbing, extremities motor strength 5/5 Skin: no rashes, warm and dry Neurologic: PERRL, EOMI, accommodation nl, no face palsy, no dysarthria CN's II-XI intact bilaterally and moves all extremities Psychiatric: Orientation: alert and oriented x 3 Results & Data Results & Data ([facility]) Vital Signs (Past 12 Hours) Vital Signs Temp Pulse Resp BP Pulse Ox 12/21/20 01:00 71 24 92 12/21/20 00:31 24 95 12/21/20 00:01 90 13 148/84 H 96 12/20/20 23:05 75 20 131/99 94 12/20/20 22:55 110 H 21 126/103 H 95 12/20/20 22:34 143 H 18 94 12/20/20 22:04 95 12/20/20 22:01 62 12 95 12/20/20 22:00 57 L 17 140/78 95 12/20/20 21:57 64 16 141/84 H 96 12/20/20 21:35 140 H 21 12/20/20 21:21 36.6 C 120 H 18 146/85 H 96 Laboratory Results 12/21/20 12/21/20 12/20/20 Range/Units 01:48 01:48 21:38 WBC (4.8-10.8) K/uL RBC (4.7-6.1) M/uL Hgb (14.0-18.0) g/dL Hct (42-52) % MCV (80-100) fL MCH (25-34) pg MCHC (32-36) g/dL RDW Std Deviation (36.4-46.3) fL RDW Coeff of Jane (11.5-14.5) % Plt Count (130-400) K/uL MPV (7.4-10.4) fL Immature Gran % (Auto) % Neut % (Auto) % Lymph % (Auto) % Mineral % (Auto) % Eos % (Auto) % Baso % (Auto) % Neut # (Auto) (1.4-6.5) K/uL Lymph # (Auto) (1.2-3.4) K/uL Mineral # (Auto) (0.11-0.59) K/uL Eos # (Auto) (0-0.5) K/uL Baso # (Auto) (0-0.2) K/uL Immature Gran # (Auto) (0.00-0.02) K/uL PT 9.5 (9.0-12.0) Seconds INR 0.9 (0.9-1.1) Sodium (136-145) mmol/L Potassium (3.5-5.1) mmol/L Chloride (98-107) mmol/L Carbon Dioxide (21-32) mmol/L Anion Gap (3-11) BUN (7-18) mg/dl Creatinine (0.6-1.4) mg/dl Est Cr Clr Drug Dosing ml/min Est GFR ( Amer) ml/min Est GFR (Non-Af Amer) ml/min BUN/Creatinine Ratio (10-20) Glucose (70-99) mg/dl Calcium (8.5-10.1) mg/dl Phosphorus (2.5-4.9) mg/dl Magnesium (1.8-2.4) mg/dl Total Bilirubin (0.2-1) mg/dl AST (15-37) U/L ALT (12-78) U/L Alkaline Phosphatase (45-117) U/L Troponin I (0-0.045) ng/ml Total Protein (6.4-8.2) gm/dl Albumin (3.4-5.0) gm/dl Globulin (2.5-4.0) gm/dl Albumin/Globulin Ratio (0.9-2) TSH (0.300-4.500) uIu/ml COVID-19 Eval Order Covid19 at [facility] SARS-CoV-2 (PCR) NEGATIVE (Negative) 12/20/20 12/20/20 Range/Units 21:38 21:38 WBC 6.19 (4.8-10.8) K/uL RBC 4.63 L (4.7-6.1) M/uL Hgb 14.7 (14.0-18.0) g/dL Hct 43.4 (42-52) % MCV 93.7 (80-100) fL MCH 31.7 (25-34) pg MCHC 33.9 (32-36) g/dL RDW Std Deviation 49.9 H (36.4-46.3) fL RDW Coeff of Jane 14.7 H (11.5-14.5) % Plt Count 216 (130-400) K/uL MPV 10.6 H (7.4-10.4) fL Immature Gran % (Auto) 0.2 % Neut % (Auto) 61.3 % Lymph % (Auto) 20.7 % Mineral % (Auto) 9.2 % Eos % (Auto) 7.6 % Baso % (Auto) 1.0 % Neut # (Auto) 3.80 (1.4-6.5) K/uL Lymph # (Auto) 1.28 (1.2-3.4) K/uL Mineral # (Auto) 0.57 (0.11-0.59) K/uL Eos # (Auto) 0.47 (0-0.5) K/uL Baso # (Auto) 0.06 (0-0.2) K/uL Immature Gran # (Auto) 0.01 (0.00-0.02) K/uL PT (9.0-12.0) Seconds INR (0.9-1.1) Sodium 140 (136-145) mmol/L Potassium 4.3 (3.5-5.1) mmol/L Chloride 107 (98-107) mmol/L Carbon Dioxide 28 (21-32) mmol/L Anion Gap 6.0 (3-11) BUN 31 H (7-18) mg/dl Creatinine 0.99 (0.6-1.4) mg/dl Est Cr Clr Drug Dosing 64.0 ml/min Est GFR ( Amer) 88.4 ml/min Est GFR (Non-Af Amer) 76.3 ml/min BUN/Creatinine Ratio 31.3 H (10-20) Glucose 136 H (70-99) mg/dl Calcium 9.4 (8.5-10.1) mg/dl Phosphorus 2.9 (2.5-4.9) mg/dl Magnesium 1.9 (1.8-2.4) mg/dl Total Bilirubin 0.3 (0.2-1) mg/dl AST 10 L (15-37) U/L ALT 16 (12-78) U/L Alkaline Phosphatase 76 (45-117) U/L Troponin I < 0.015 (0-0.045) ng/ml Total Protein 7.1 (6.4-8.2) gm/dl Albumin 3.6 (3.4-5.0) gm/dl Globulin 3.5 (2.5-4.0) gm/dl Albumin/Globulin Ratio 1.0 (0.9-2) TSH 4.230 (0.300-4.500) uIu/ml COVID-19 Eval Order SARS-CoV-2 (PCR) (Negative) Medications Administered Home Medication List Medication Instructions Recorded magnesium oxide 500 mg PO QAM 01/20/19 cholecalciferol (vitamin D3) 50 2,000 units PO QAM cap 02/14/19 mcg (2,000 unit) capsule blood sugar diagnostic #10 ea 02/27/19 aspirin 81 mg tablet,delayed 81 mg PO QAM 06/27/19 release Lantus Solostar U-100 Insulin See Rx Instructions SQ DAILY PRN 07/04/19 ascorbic acid (vitamin C) [Vitamin 500 mg PO QAM 07/04/19 C] montelukast 10 mg tablet 10 mg PO HS #90 tab 11/20/19 miscellaneous medical supply #1 ea 12/03/19 naproxen 500 mg tablet 500 mg PO BID PRN #14 tab 03/24/20 budesonide-formoterol HFA 160 2 inh INH BID #30.6 g 03/31/20 mcg-4.5 mcg/actuation aerosol inhaler fluticasone propionate 50 2 spray INTRANASAL DAILY PRN #48 g 03/31/20 mcg/actuation nasal spray,suspension metformin 500 mg tablet 500 mg PO BID #180 tab 04/21/20 Flutter Valve #1 ea 05/19/20 celecoxib 200 mg capsule 200 mg PO QAM #90 cap 06/17/20 pantoprazole 40 mg tablet,delayed 40 mg PO QAM #90 tab 06/17/20 release lisinopril 10 mg tablet 10 mg PO DAILY #90 tab 07/22/20 ranolazine 500 mg tablet,extended 500 mg PO BID #180 tab 09/22/20 release,12 hr levalbuterol tartrate 45 2 inh INH Q6H PRN #3 inhaler 09/24/20 mcg/actuation aerosol inhaler levalbuterol HCl 0.63 mg/3 mL 0.63 mg INHALATION Q6H PRN #360 ml 10/22/20 solution for nebulization diltiazem HCl 120 mg capsule,24 120 mg PO QPM #90 cap 12/03/20 hr,extended release pseudoephedrine HCl 120 mg 120 mg PO BID 30 Days #60 tab 12/08/20 tablet,extended release sodium chloride, sodium See Rx Instructions .ROUTE 12/08/20 bicarb-nasal rinse squeeze bottle .COMPLEX #50 ea with packet evolocumab [Repatha Syringe] 140 mg SUBCUT .[id number] 12/20/20 guaifenesin [Mucinex] 600 mg PO BID 12/20/20 insulin lispro [Humalog U-100 0 unit CONTINUOUS SUBCUTANEOUS 12/20/20 Insulin] INFUSION CONTINOUS Supervising Physician Co-Signing Physician Notes Attending addendum: I have physically seen this patient, have supervised the medical residents activities, and agree with the H&P unless as otherwise noted. Assessment and Plan: Atrial fibrillation with RVR/Hypertension- The patient will be admitted to telemetry for serial cardiac enzymes, serial EKG's, cardiac rhythm monitoring and a 2-D echocardiogram with Dopplers. Status post boluses of IV Cardizem in the ED Continue Cardizem CD 180 mg daily Consult his police communications dispatcher Dr. Reed Diabetes mellitus- Hold insulin pump for now Place on Accu-Cheks before meals and at bedtime with NovoLog coverage per scale Moderate persistent asthma continue home inhaler regimen Remaining orders and notations as noted Resident Activity Tracking Resident Involvement: Resident Care Provided Care Provided: Adult Hospital Medicine
[2020-12-21] MEDS ORDERED: NITROGLYCERIN SL 0.4 MG/TAB TAB SL PRN (06:17)
[2020-12-21] MEDS ORDERED: GLUCOSE 40% GEL 15 GM TUBE PO PRN (06:17)
[2020-12-21] MEDS ORDERED: GLUCAGON FOR INJ 1 MG VIAL SQ PRN (06:17)
[2020-12-21] MEDS ORDERED: ACETAMINOPHEN 325 MG TAB PO PRN (06:17)
[2020-12-21] MEDS ORDERED: MoRPHine SULFATE 2 MG/ML CARP IV PRN (06:17)
[2020-12-21] MEDS ORDERED: LEVALBUTEROL TARTRATE 15 GM HFA.AER.AD INH PRN (06:17)
[2020-12-21] MEDS ORDERED: LEVALBUTEROL HCL 0.63 MG/3 ML NEB INH PRN (06:17)
[2020-12-21] MEDS ORDERED: MAGNESIUM HYDROXIDE SUSP 30 ML UDC PO PRN (06:17)
[2020-12-21] MEDS ORDERED: ONDANSETRON INJ 2 MG/ML 2 ML VIAL IV PRN (06:17)
[2020-12-21] MEDS ORDERED: ALUMINUM/MAGNESIUM SUSP 30 ML UDC PO PRN (06:17)
[2020-12-21] MEDS ORDERED: CARBOHYDRATES FOR HYPOGLYCEMIA PO PRN (06:17)
[2020-12-21] MEDS ORDERED: POLYETHYLENE (MIRALAX) 17 GM PACK PO PRN (06:17)
[2020-12-21] MEDS ORDERED: GLUCOSE 10 TABS/TUBE PO PRN (06:17)
[2020-12-21] MEDS ORDERED: DEXTROSE 50% 50 ML SYRINGE IV PRN (06:17)
[2020-12-21] MEDS ORDERED: PHARMACY GLYCEMIC MGMT CONSULT PRN (06:49)
--- NOTE | 2020-12-21 08:34 | Pharmacy Report ---
Pharmacy Glycemic Short Note 2 - Date of Service December 21, 2020 - Glycemic Short BSG Results (Last 24 hours): 12/20/20 12/21/20 21:38 07:31 Glucose 136 H POC Glucose 98 OUTPATIENT ANTIDIABETIC REGIMEN: * Humalog insulin pump (settings below per last endocrinology visit) * Basal rates (0000: 0.55 unit/hr, 0600: 0.875 unit/hr, 2100: 0.7 unit/hr) ~18.5 units/day * Correction factor: 30 unit/mg/dL (for BSG above 140 mg/dL) * Bolus insulin to carb ratio: 0000: 8 gm/unit, 1700: 7 gm/unit * Metformin 500 mg PO BIDM * HbA1c: 6.6% (10/11/20) ASSESSMENT: * is a 70 year old male with T1DM, followed by endocrinology * Admitted last evening with atrial fibrillation with rapid ventricular response * Patient does not currently have insulin pump connect (ran out of insulin and took supplies home) * Will manage with SC basal/bolus while inpatient * BSG this morning of 98 mg/dL * Will give ~80% of home basal dose now and follow * Novolog per home pump settings PLAN FOR INPATIENT GLYCEMIC CONTROL: * Hold outpatient oral diabetes medications (i.e. metformin) * Basal insulin * Lantus 15 units SC this morning * Reassess in AM * Bolus insulin * NovoLog per scale ACHS or Q6hrs while NPO * Goal Range: Low 110 mg/dL - High 140 mg/dL * Correction Factor: 30 mg/dL/unit * Nutritional / Prandial insulin per carb ratio of 1 unit per 8 grams CHO consumed PLAN FOR DISCHARGE: * HbA1c of 6.6% suggests excellent outpatient glycemic control * Suggest continuing insulin pump at current settings + metformin at discharge, provided patient is not experiencing hypoglycemia as an outpatient
--- NOTE | 2020-12-21 08:42 | XRay Report ---
XR chest 1V portable HISTORY: weakness COMPARISON: Chest 06/04/2019. FINDINGS: Cardiac silhouette remains borderline enlarged. There are patchy bibasilar densities which are similar to the prior study. The upper lung zones remain clear. No evidence for pulmonary edema. N o pleural effusions. No pneumothorax. There are poststernotomy changes. Postoperative changes again n oted within the proximal left humerus. IMPRESSION: 1. Patchy bibasilar densities, unchanged. This favors atelectasis/scarring given the long-term stabil ity. 2. No new focal lung consolidations to suggest pneumonia. ACT 112: Negative or not required by law. Electronically signed by: Danny Arellano M.D. 12/21/2020 8:41 AM
[2020-12-21] MEDS: INSULIN ASPART 100 UNITS/ML 3 ML PEN SC SCH ×2 (08:44→12:11)
[2020-12-21] MEDS ORDERED: FLUTICASONE/VILANTEROL 200/25MCG 14 PUFFS/INHALER INH SCH (09:00)
[2020-12-21] MEDS ORDERED: guaiFENesin 600 MG TABCR PO SCH (09:00)
[2020-12-21] MEDS ORDERED: INSULIN GLARGINE SOLOSTAR 100 UNITS/ML 3 ML PEN SC SCH ×2 (09:00)
[2020-12-21] MEDS ORDERED: ASPIRIN 81 MG ECTAB PO SCH (09:00)
[2020-12-21] MEDS ORDERED: lisinopril 10 MG TAB PO SCH (09:00)
[2020-12-21] MEDS ORDERED: metFORMIN HCL 500 MG TAB PO SCH (09:00)
[2020-12-21] MEDS ORDERED: RANOLAZINE 500 MG ER TAB PO SCH (09:00)
[2020-12-21] MEDS ORDERED: CeleBREX 200 MG CAP PO SCH (09:00)
[2020-12-21] MEDS ORDERED: PANTOprazole 40 MG TAB PO SCH (09:00)
--- NOTE | 2020-12-21 12:04 | Electrocardiogram Report ---
Test Reason : Blood Pressure : / mmHG Vent. Rate : 068 BPM Atrial Rate : 068 BPM P-R Int : 128 ms QRS Dur : 078 ms QT Int : 392 ms P-R-T Axes : 033 -19 032 degrees QTc Int : 416 ms Poor data quality, interpretation may be adversely affected Normal sinus rhythm possible Inferior infarct , age undetermined Abnormal ECG When compared with ECG of 21-DEC-2014 07:03, RI interval has increased Nonspecific T wave abnormality has replaced inverted T waves in Inferior leads Nonspecific T wave abnormality now evident in Lateral leads Confirmed by Nicholas Ingram ([id number]) on 12/21/2020 12:03:54 PM Referred By: REFERRED SELF Confirmed By:Ion Ingram
--- NOTE | 2020-12-21 12:04 | Electrocardiogram Report ---
Test Reason : Blood Pressure : / mmHG Vent. Rate : 096 BPM Atrial Rate : 326 BPM P-R Int : 000 ms QRS Dur : 092 ms QT Int : 356 ms P-R-T Axes : 000 -01 076 degrees QTc Int : 449 ms Atrial fibrillation Nonspecific ST abnormality Abnormal ECG When compared with ECG of 20-DEC-2020 22:51, (unconfirmed) ST no longer depressed in Anterolateral leads T wave inversion no longer evident in Inferior leads T wave inversion no longer evident in Lateral leads Confirmed by Nicholas Ingram ([id number]) on 12/21/2020 12:04:12 PM Referred By: REFERRED SELF Confirmed By:Ion Ingram
--- NOTE | 2020-12-21 12:06 | Electrocardiogram Report ---
Test Reason : Blood Pressure : / mmHG Vent. Rate : 135 BPM Atrial Rate : 138 BPM P-R Int : 000 ms QRS Dur : 086 ms QT Int : 274 ms P-R-T Axes : 000 -01 211 degrees QTc Int : 411 ms Poor data quality, interpretation may be adversely affected Atrial fibrillation with rapid ventricular response Cannot rule out Inferior infarct (cited on or before 20-DEC-2020) Abnormal ECG When compared with ECG of 20-DEC-2020 21:56, (unconfirmed) Atrial fibrillation has replaced Sinus rhythm Vent. rate has increased BY 67 BPM T wave inversion now evident in Inferior leads T wave inversion now evident in Lateral leads Confirmed by Nicholas Ingram ([id number] on 12/21/2020 12:06:37 PM Referred By: REFERRED SELF Confirmed By:Ion Ingram
--- NOTE | 2020-12-21 13:03 | Cardiology Consultation ---
Date of Consultation December 21, 2020 Assessment & Plan (1) Atrial fibrillation with RVR: -longstanding history. -patient agreeable to start Eliquis 5 mg b.i.d. -continue diltiazem for rate control. (2) CAD (coronary artery disease): -s/p CABG x3, 1997 -normal stress echocardiogram August 2020 -continue medical management. (3) Hypertension: -adequate control on current regimen. (4) Dyslipidemia: -intolerant to statins. History of Present Illness Attending Physician: Bryce Rose DO History of Present Illness Mr. Gamboa is a 70-year-old male admitted yesterday with atrial fibrillation and rapid ventricular response. The patient is well known to me from the outpatient setting. The patient was in his usual state of health until approximately 1 month ago. He has began to note more frequent episodes of his atrial fibrillation. On the day of presentation, he was noting significant palpitations and a rapid ventricular response. He presented to the emergency room for further care. Hospitalization was recommended. The patient has previously refused long-term anticoagulation as he is a [employer]. He is willing to start that therapy currently. The patient carries a history of coronary artery disease having undergone a 3 vessel bypass in 1997. He did have a normal stress echocardiogram performed in August 2020. He also carries a history of hypercholesterolemia but is intolerant to statin therapy. Currently, patient is resting comfortably in bed without complaints. Past medical and surgical history 1. CABG times 3-1997 2. Hypertension 3. Hypercholesterolemia-statin intolerant 4. Paroxysmal atrial fibrillation 5. Right TKR 6. Inguinal hernia repair 7. ORIF left humerus Social history and lives with his No tobacco Rare alcohol Family history Noncontributory Review of systems A 10 review systems was negative except that described above. Allergies Allergy/AdvReac Type Severity Reaction Status Date / Time Fcspbwx-Dxr-Upn Reductase Allergy Mild Myalgia Verified 12/20/20 22:24 Inhibitor tamsulosin AdvReac Mild Nausea Verified 12/20/20 22:24 Home Medications Medication Instructions Recorded Confirmed Type magnesium oxide 500 mg PO QAM 01/20/19 12/20/20 History cholecalciferol (vitamin D3) 50 2,000 units PO QAM cap 02/14/19 12/20/20 History mcg (2,000 unit) capsule blood sugar diagnostic #10 ea 02/27/19 12/08/20 History aspirin 81 mg tablet,delayed 81 mg PO QAM 06/27/19 12/20/20 History release Lantus Solostar U-100 Insulin See Rx Instructions SQ DAILY PRN 07/04/19 12/20/20 History ascorbic acid (vitamin C) [Vitamin 500 mg PO QAM 07/04/19 12/20/20 History C] montelukast 10 mg tablet 10 mg PO HS #90 tab 11/20/19 12/20/20 Rx miscellaneous medical supply #1 ea 12/03/19 12/08/20 Rx naproxen 500 mg tablet 500 mg PO BID PRN #14 tab 03/24/20 12/20/20 Rx budesonide-formoterol HFA 160 2 inh INH BID #30.6 g 03/31/20 12/20/20 Rx mcg-4.5 mcg/actuation aerosol inhaler fluticasone propionate 50 2 spray INTRANASAL DAILY PRN #48 g 03/31/20 12/20/20 Rx mcg/actuation nasal spray,suspension metformin 500 mg tablet 500 mg PO BID #180 tab 04/21/20 12/20/20 Rx Flutter Valve #1 ea 05/19/20 12/08/20 Rx celecoxib 200 mg capsule 200 mg PO QAM #90 cap 06/17/20 12/20/20 Rx pantoprazole 40 mg tablet,delayed 40 mg PO QAM #90 tab 06/17/20 12/20/20 Rx release lisinopril 10 mg tablet 10 mg PO DAILY #90 tab 07/22/20 12/20/20 Rx ranolazine 500 mg tablet,extended 500 mg PO BID #180 tab 09/22/20 12/20/20 Rx release,12 hr levalbuterol tartrate 45 2 inh INH Q6H PRN #3 inhaler 09/24/20 12/20/20 Rx mcg/actuation aerosol inhaler levalbuterol HCl 0.63 mg/3 mL 0.63 mg INHALATION Q6H PRN #360 ml 10/22/20 12/20/20 Rx solution for nebulization diltiazem HCl 120 mg capsule,24 120 mg PO QPM #90 cap 12/03/20 12/20/20 Rx hr,extended release pseudoephedrine HCl 120 mg 120 mg PO BID 30 Days #60 tab 12/08/20 12/20/20 Rx tablet,extended release sodium chloride, sodium See Rx Instructions .ROUTE 12/08/20 12/20/20 Rx bicarb-nasal rinse squeeze bottle .COMPLEX #50 ea with packet evolocumab [Repatha Syringe] 140 mg SUBCUT .[id number] 12/20/20 12/20/20 History guaifenesin [Mucinex] 600 mg PO BID 12/20/20 12/20/20 History insulin lispro [Humalog U-100 0 unit CONTINUOUS SUBCUTANEOUS 12/20/20 12/20/20 History Insulin] INFUSION CONTINOUS Patient History Medical History Chest wall mass Chronic sinusitis Cough productive of clear sputum History of kidney stones Hypomagnesemia syndrome Osteoarthritis Pneumonia Refusal of blood transfusions as patient is [employer] Surgical History H/O colonoscopy H/O lithotripsy 03/28/13: LMA #4 History of cardiac cath 1997 - --> CABG History of open reduction and internal fixation (ORIF) procedure left humerous History of right knee joint replacement 02/11/2019 [facility] Hx of heart bypass surgery 1997 - triple deb Hx of hernia repair Left inguinal: 06/04/12: LMA #5 attempted but didn't seal, LMA #4 successful Hx of sinus surgery Family History Father Family history of diabetes mellitus Coronary heart disease Myocardial infarction Heart disease Brother Family history of diabetes mellitus Mother Family history of diabetes mellitus Essential hypertension Stroke Denies family history of Colon cancer Ovarian cancer Prostate cancer Breast cancer Social History Smoking Status: Never smoker Second Hand Exposure: No; Hx Alcohol Use: Yes Alcohol type: beer and wine Alcohol type Comment: 1-2 a week Hx Substance Use: No Preferred Language: Syriac Communication Ability: Effective Visual Impairment: Limited Hearing Ability: Normal Director Of Casework Required: No Beliefs That Will Affect Care: Jainism Jainism Beliefs: jehovah witness marital status: Current Living Situation: Spouse current occupational status: retired Other Information That Helps Us Care for You: No Feels Safe at Home: Yes Safety Concerns: Feels Safe At This Time Childhood Exposure to Second-Hand Smoke: Yes Dental Care, Regularly: Yes Physical Activity Frequency: 3-4 Times per Week Physical Activity Frequency Comment: walking Seatbelt Use: always Assistive Devices: Glasses Physical Exam Physical Exam: In general this is a well-developed well-nourished white male in no acute distress. HEENT exam is negative. Neck is supple with full carotid upstrokes. There are no carotid bruits. Jugular venous pressure is flat at 90. There is no thyromegaly. Cardiovascular exam reveals a regular rhythm with a normal S1 and S2. No S3, S4, or murmurs are noted. Chest reveals a well- healed midline scar. Lungs are clear without rales, rhonchi, or wheezes. Abdomen is soft and nontender without bruits. Extremities reveal intact radial artery and posterior tibial pulses bilaterally. There is no peripheral edema. Results & Data ([facility]) Vital Signs (Past 12 Hours) Vital Signs Temp Pulse Pulse Resp BP BP Pulse Ox 12/21/20 11:21 36.5 C 62 20 158/83 H 93 12/21/20 08:00 66 12/21/20 07:12 36.5 C 68 19 154/81 H 95 12/21/20 06:22 68 12/21/20 06:20 36.5 C 69 18 154/90 H 95 12/21/20 05:30 57 L 19 149/78 H 93 12/21/20 05:01 60 24 146/85 H 94 12/21/20 04:32 60 10 L 126/77 96 12/21/20 04:00 68 12 156/80 H 96 12/21/20 03:30 62 16 144/81 H 96 12/21/20 03:03 61 20 152/67 H 95 12/21/20 03:02 62 19 152/67 H 95 12/21/20 02:30 59 L 22 148/77 H 96 12/21/20 02:00 56 L 16 152/78 H 97 12/21/20 01:40 59 L 15 173/77 H 94 12/21/20 01:00 71 24 92 Laboratory Results CBC notes hemoglobin 14.7, hematocrit 43.4, white count 6.19, a platelet count [id number]. Electrolytes note a sodium of 140, potassium 4.3, chloride 107, bicarb 28, BUN 31, creatinine 0.99, and glucose of 136. Troponin I level is undetectable less than 0.015. TSH is normal at 4.23. Diagnostic Findings Initial EKG noted sinus rhythm with an inferior myocardial infarction pattern. The 2nd tracing noted atrial fibrillation with a rapid ventricular response. The 3rd tracing noted atrial fibrillation with a controlled ventricular response. fastener technologist notes sinus rhythm. PG Care Time/CCT Total # of Minutes Spent Total Time Spent with Patient: Total time spent is greater than 50% in coordination of care (as documented) at patient's floor/unit and/or counseling patient: Coding Level of Care Code 89213 OBS Care - Level 3 Diagnoses Atrial fibrillation with RVR I48.91 CAD (coronary artery disease) I25.10 Hypertension I10 Dyslipidemia E78.5
--- NOTE | 2020-12-21 16:47 | Discharge Summary ---
Date of Service December 21, 2020 Admission HPI Per Admitting Provider Noah Gamboa 70-year-old male with past medical history significant for hypertension, obstructive sleep apnea, type 1 diabetes, known A. fib, moderate persistent asthma; who presents for concerns atrial fibrillation with rapid ventricular rate. Earlier in the evening, patient started to feel some palpitations and when using his heart monitor on his smart watch and phone did notice that he had return into atrial fibrillation with a faster heart rate. This is been coming more more frequently over the last several weeks/months and given this more frequent occurrence he has been considering more the role of anticoagulants that he previously wanted to avoid. Previously has been hesitant to utilize his medications as as concern remained that long-term as a [employer] he would not want to receive blood transfusions and if any accidents were to potentially happen this could be potentially life-threatening while on an anticoagulant. However as he is growing older his main concern is remaining more functional at this time, and risk of having a stroke as a result of his atrial fibrillation has caused him to start to second-guess this previous hesitance. Desires to have further conversations, continuing previous conversations had with Dr. eRed, with cardiology while he is inpatient as he would like to get that started if that is agreed upon by both himself his and the cardiologists. Upon discussions of CODE STATUS; patient endorses that while he had never really given this much thought his initial inclination would be for no intubation or mechanical ventilation, however would be accepting of chest compressions, defibrillation, alternative airways other than intubation, and medication standard for cardiac resuscitation attempts. Admission Exam Per Admitting Provider Constitutional: WD/WN, vitals as above Eyes: PERRL, conjunctivae normal, anicteric sclerae Respiratory: normal respiratory effort, lungs clear to auscultation Auscultation: no crackles, no rales, no rhonchi and no wheezes Cardiovascular: Rate/Rhythm: + irregularly irregular Heart Sounds: no gallop, no murmur and no cardiac rub Vessels: normal peripheral pulses; no JVD Extremities: no edema Gastrointestinal (Abdomen): Inspection/Auscultation: normal bowel sounds; abdomen not distended Percussion/Palpation: abdomen soft; abdomen nontender and no guarding Musculoskeletal: no cyanosis or clubbing, extremities motor strength 5/5 Skin: no rashes, warm and dry Neurologic: PERRL, EOMI, accommodation nl, no face palsy, no dysarthria CN's II-XI intact bilaterally and moves all extremities Psychiatric: Orientation: alert and oriented x 3 Principal Diagnosis Atrial fibrillation with RVR Discharge Exam Constitutional: well-appearing, no acute distress CV: regular rhythm, rate ~60s, no murmur appreciated, extremities well-perfused Resp: CTABL, no wheezes/rales/rhonchi appreciated, no increased work of breathing GI: soft, nondistended, nontender, BS normoactive MSK: no gross deformities appreciated Skin: warm, dry, no rash appreciated Neuro: AOx4, no focal neurological deficits appreciated Discharge Data Allergies Allergy/AdvReac Type Severity Reaction Status Date / Time Qqcoyvg-Ljj-Bry Reductase Allergy Mild Myalgia Verified 12/20/20 22:24 Inhibitor tamsulosin AdvReac Mild Nausea Verified 12/20/20 22:24 Consultations 12/21/20 00:15 ED Decision to Admit Stat 12/21/20 06:17 Consult Cardiology Routine Hospital Course (1) Atrial fibrillation with RVR: Atrial fibrillation with RVR Patient was treated with IV diltiazem in the ED. Shortly after admission, patient converted to normal sinus rhythm with rate in the 60s. Cardiology was consulted and recommended addition of Eliquis to patient's home regimen; patient was agreeable. Patient was discharged on hospital day one in stable condition with close PCP and cardiology follow-up recommended. T1DM Patient's BSG were monitored and treated with sliding-scale insulin during his hospital stay. Hypertension Patient's home dose lisinopril was continued during his hospitalization. (2) Diabetes type 1, controlled: (3) Dyslipidemia: (4) Hypertension: (5) Moderate persistent asthma: Total Time Total Time Spent Total Time Spent (In Minutes): 30 minutes; 15 minutes at bedside, 15 minutes reviewing test, results, and preparing discharge Discharge Plan Discharge Items Patient Disposition: Home - Self-Care Reason For Visit: A-FIB Discharge Diagnosis: Atrial fibrillation with rapid ventricular rate Activity: Resume your previous activity Non-emergency contact: Primary Care Provider and Program Planner Call non-emergency contact if: you have any medication questions and your symptoms worsen Follow-up/Referrals: Mat Anne, [Primary Care Provider] - 12/29/20 9:20 am (Your appointment is schedule with JOHN Saunders) Diet: Carb Count or DM1 Addtl Attending Provider Instructions: You were admitted to the hospital for atrial fibrillation. You were treated with medication to improve your heart rate and correct your heart's abnormal rhythm. You met with your tax technician, Dr. Reed, and he recommends taking apixaban (Eliquis), a blood thinner, to reduce your risk of stroke. A discharge summary will be sent to your primary care physician to ensure continuity of care. Please bring this discharge summary with you to your next office appointment so that your provider can review it at that time. Follow-up appointments: Make a follow-up appointment with your PCP within the next week. It is very important that you follow up with them shortly after discharge from the hospital. Keep all your follow-up appointments as already scheduled. If you cannot make an appointment, notify your provider. Medications: Your medication list has been reviewed and reconciled upon discharge to ensure accuracy and continuity of care. An updated list of all your medications is included with your hospital discharge paperwork. Please review this list closely, and make note of any changes. * We sent a new medication called Eliquis (apixaban) to your pharmacy. Eliquis is a blood thinner. Take Eliquis (5mg) one tablet twice daily. * Continue the rest of your home medication regimen as previously directed. Take your medications as instructed; do not skip a dose of your medicines. Make sure all of your doctors know every medicine you are taking (including ywcj-akm-veczkyg medicines, vitamins, and supplements). Call your primary care provider before taking any new medicines (including orrg-rno-zmxwvqh medicines, vitamins, and supplements), because some of these may interact with your current medications, or may make your symptoms worse. Tell your primary care provider if you cannot afford your medications. CONTACT YOUR PRIMARY CARE PROVIDER if you experience any of the following: Feeling a fast heart rate or heart palpitations Lightheadedness or dizziness Difficulty following your treatment plan, or difficulty taking medications CALL 911 OR GO TO THE EMERGENCY DEPARTMENT if you experience any of the following: Sudden vision changes Fainting Sudden, severe abdominal pain or nausea/vomiting Severe chest pain, or chest pain that radiates (moves) to your jaw or arm Sudden, severe shortness of breath or difficulty breathing Thank you for allowing us to participate in your care. Pending Studies at Discharge: No Stand-Alone Forms: My [facility] Medications and DC Order Prescriptions: New Eliquis 5 mg tablet 5 mg PO BID Qty: 60 RF: 0 Continued (DME) Contour Next Test Strips strip See Dose Instructions .ROUTE .MEDSUPPLY Qty: 10 RF: 0 montelukast 10 mg tablet 10 mg PO HS Qty: 90 RF: 3 fluticasone propionate 50 mcg/actuation spray,suspension 2 spray INTRANASAL DAILY PRN (Reason: Nasal Congestion) Qty: 48 RF: 1 Symbicort 160-4.5 mcg/actuation HFA aerosol inhaler 2 inh INH BID Qty: 30.6 RF: 1 metformin 500 mg tablet 500 mg PO BID Qty: 180 RF: 3 (DME) Flutter Valve Device See Rx Instructions .ROUTE .MEDSUPPLY Qty: 1 RF: 0 lisinopril 10 mg tablet 10 mg PO DAILY Qty: 90 RF: 3 levalbuterol tartrate [Xopenex HFA] 45 mcg/actuation HFA aerosol inhaler 2 inh INH Q6H PRN (Reason: shortness of breath) Qty: 3 RF: 1 levalbuterol HCl 0.63 mg/3 mL solution for nebulization 0.63 mg inhalation Q6H PRN (Reason: shortness of breath or wheezing) Qty: 360 RF: 11 diltiazem HCl 120 mg capsule,extended release 24 hr 120 mg PO QPM Qty: 90 RF: 3 aspirin [Adult Low Dose Aspirin] 81 mg tablet,delayed release (DR/EC) 81 mg PO QAM RF: 0 Neilmed Sinus Rinse Complete Packet With Rinse Device See Rx Instructions .ROUTE .COMPLEX Qty: 50 RF: 3 (DME) CPAP Supplies Misc See Rx Instructions .ROUTE .MEDSUPPLY Qty: 1 RF: 0 naproxen 500 mg tablet 500 mg PO BID PRN (Reason: pain) Qty: 14 RF: 1 cholecalciferol (vitamin D3) 2,000 unit capsule 2,000 units PO QAM RF: 0 celecoxib 200 mg capsule 200 mg PO QAM Qty: 90 RF: 3 pantoprazole 40 mg tablet,delayed release (DR/EC) 40 mg PO QAM Qty: 90 RF: 3 ranolazine 500 mg tablet extended release 12 hr 500 mg PO BID Qty: 180 RF: 3 magnesium oxide 500 mg Tablet 500 mg PO QAM RF: 0 ascorbic acid (vitamin C) [Vitamin C] 500 mg tablet 500 mg PO QAM RF: 0 Lantus Solostar U-100 Insulin 100 unit/mL (3 mL) insulin pen See Rx Instructions SQ DAILY PRN (Reason: UD) RF: 0 guaifenesin [Mucinex] 600 mg Tablet Extended Release 12hr 600 mg PO BID RF: 0 insulin lispro [Humalog U-100 Insulin] 100 unit/mL solution 0 unit continuous subcutaneous infusion CONTINOUS RF: 0 Repatha Syringe 140 mg/mL syringe 140 mg subcut .[id number] RF: 0 Discontinued pseudoephedrine HCl [Sudafed 12 Hour] 120 mg tablet extended release 120 mg PO BID 30 Days Qty: 60 RF: 3 Discharge Orders: Discharge Order (Routine); Ordered 12/21/20 Ordered By: Yuri Arias/Other Patient Handouts: AFL/Afib, Stroke Prevent Live W Atrial Fib Admission Data Admit Date/Time: 12/21/20 03:10 Attending Provider: Bryce Rose Admit Provider: Benjamin Pena Primary Care Provider: Mat Anne Other Providers: Alejandro Live ; Renato Reed Other Interventions: Discharge Summary Assessment (RN) Last Done: 12/21/20 14:18 Supervising Physician Co-Signing Physician Notes I also saw the patient and confirmed bro portions of the history and the physical examination. I agree with the impression and plan as noted in the resident documentation. 70-year-old male with known history of paroxysmal atrial fibrillation was admitted through the emergency department after presenting in atrial fibrillation with rapid ventricular response. He was initially treated with IV diltiazem; when he went off telemetry in the emergency department he was in atrial fibrillation; when he was hooked up to telemetry on the floor he was in a normal sinus rhythm. Fortunately, he is remained in a normal sinus rhythm throughout today. His rates have been in the mid 50s to mid 60s. He was seen in consultation by cardiology. He has a long established relationship with cardiology and they had previously discussed anticoagulation for stroke prevention in the setting of atrial fibrillation. The patient himself has been hesitant to start systemic anticoagulation as given his episcopal believes he would not be amenable to blood transfusion/products. After continue discussions today, he has decided to begin systemic anticoagulation as recommended by cardiology. Exam Pleasant. Alert. No distress. HEENT grossly unremarkable Heart is regular rate and rhythm. Auscultated rate 60. Lungs clear with nonlabored respirations Impression and Plan Paroxysmal atrial fibrillation, with rapid ventricular response, resolved Continue home dose of calcium channel britney With his relatively low rate when he is in sinus rhythm, would not recomm end increased dose He could be amendable to a pill in the pocket prescription and he will discuss this with cardiology at follow-up Add Eliquis 5 mg p.o. twice daily Follow-up with cardiology as scheduled Resident Activity Tracking Resident Involvement: Resident Care Provided Care Provided: Adult Hospital Medicine
--- NOTE | 2020-12-21 17:52 | Electrocardiogram Report ---
Test Reason : Blood Pressure : / mmHG Vent. Rate : 134 BPM Atrial Rate : 312 BPM P-R Int : 000 ms QRS Dur : 092 ms QT Int : 312 ms P-R-T Axes : 000 006 166 degrees QTc Int : 465 ms Poor data quality, interpretation may be adversely affected Atrial fibrillation with rapid ventricular response Marked ST abnormality, possible lateral subendocardial injury Abnormal ECG Confirmed by Nicholas Ingram ([id number]) on 12/21/2020 5:52:32 PM Referred By: REFERRED SELF Confirmed By:Ion Ingram
[2020-12-21] MEDS ORDERED: MONTELUKAST SODIUM 10 MG TABLET PO SCH (21:00)
[2020-12-21] MEDS ORDERED: dilTIAZem ER 120 MG CAPCR PO SCH (21:00)
--- NOTE | 2020-12-22 06:50 | Billing Data ---
Date of Service December 22, 2020 Coding Level of Care Code 97046 Initial Inpt Care Lvl 3
== END 2020-12-21 15:15 | disposition home or self-care (01) | DRG 310 ==
LOC: ED 21:12 → SUATTDRO 12-21 03:10 → 2S 12-21 03:10